=== PATIENT | female | born 1935 | race Caucasian/White ===

== ENCOUNTER 2016-11-23 10:34 | Day surgery (SDC) | payer BC, OTHER ==
[2016-11-23 11:39] VITALS: BMI 33.4
[2016-11-23 12:57] VITALS: TEMP 97.5
[2016-11-23 15:07] VITALS: BP 116/64; PULSE 65
--- NOTE | 2016-11-24 12:44 | PATH ---
Surgical Pathology Report Patient Name: MARCELO SALAZAR [facility]. Rec. #: [id number] /Age/Gender: 1935 (Age: 81) / F Account: [id number] Location: [facility] Taken: 11/23/2016 Received: 11/23/2016 Reported: 11/24/2016 Physicians: Dayo Centeno M.D. Specimen(s) Received A: BX DUODENUM B: BX STOMACH C: BX GE JUNCTION Clinical History Abdominal pain Duodenitis, erosive gastritis Final Diagnosis A. DUODENUM, BIOPSY: DUODENAL MUCOSA WITH ACTIVE AND CHRONIC INFLAMMATION AND LAZARO'S GLANDS HYPERPLASIA. NO HISTOLOGIC EVIDENCE OF GLUTEN SENSITIVE ENTEROPATHY (CELIAC DISEASE). B. STOMACH, BIOPSY: GASTRIC ANTRAL MUCOSA WITH MODERATE CHRONIC GASTRITIS AND MILD REACTIVE GASTROPATHY. IMMUNOSTAIN FOR PYLORI IS NEGATIVE FOR ORGANISMS. C. GE JUNCTION, BIOPSY: SQUAMOCOLUMNAR JUNCTIONAL MUCOSA WITH CHRONIC INFLAMMATION AND REFLUX TYPE CHANGES. NO INTESTINAL METAPLASIA (MONTILLA'S ESOPHAGUS) IDENTIFIED. Electronically Signed Nicanor Christian M.D. Gross Description A. Received in formalin, labeled "biopsy duodenum" are 2 camarena, irregular portions of soft tissue measuring 0.3 and 0.5 cm in greatest dimension. The specimens are submitted in toto in one cassette. B. Received in formalin, labeled "biopsy stomach" are 2 camarena, irregular portions of soft tissue measuring 0.2 and 0.5 cm in greatest dimension. The specimens are submitted in toto in one cassette. C. Received in formalin, labeled "biopsy GE junction" is a camarena, irregular portion of soft tissue measuring 0.2 cm in greatest dimension. The specimen is submitted in toto in one cassette. 11/23/201611/23/2016
== END 2016-11-23 14:30 | disposition home or self-care (01) ==
LOC: JASU-ENDO 10:34 → JOR 10:34 → JASU-ENDO 14:30
PROVIDERS: ATTEND Internal Medicine Gastroenterology
PROC: 0DB68ZX Excision of Stomach, Via Natural or Artificial Opening Endoscopic, Diagnostic (ICD-10-PCS; 2016-11-23)
PROC: 0DB38ZX Excision of Lower Esophagus, Via Natural or Artificial Opening Endoscopic, Diagnostic (ICD-10-PCS; principal; 2016-11-23 12:00)
DX: K21.9 Gastro-esophageal reflux disease without esophagitis (principal); K29.00 Acute gastritis without bleeding; K29.80 Duodenitis without bleeding
CPT/HCPCS: 88305-TC; 88342-TC

== ENCOUNTER 2018-08-10 12:23 | Inpatient (IN) | payer OTHER ==
[2018-08-10 12:53] VITALS: BMI 34.0
[2018-08-10] MEDS ORDERED: SODIUM CHLORIDE 0.9% 1000 ML INFUS.BAG IV ONE ×2 (13:03→14:58)
--- NOTE | 2018-08-10 13:23 | PDOC ---
Attending Attestation - Resident Resident Name: Max Hebert - ED Attending Attestation I have performed the following: I have examined & evaluated the patient, The case was reviewed & discussed with the resident, I agree w/resident's findings & plan, Exceptions are as noted - HPI HPI: 08/10/18 14:04 The patient is an 82 year old female, with a significant PMH of chronic back pain, 2 bulging discs, arthritis, IDDM, SVT, HTN, CAD, HLD who presents to the emergency department for evaluation of acutely worsening low back pain and bilateral lower extremity pain and weakness, onset this morning. Patient states that every time she tried to stand out of bed that she couldnt get up, prompting her to come to the ED. As per patient's daughter, at baseline patient is ambulatory, but upon checking in on her this morning, daughter found the patient sliding off the bed stating that her thighs hurt and are both weak. The patient denies chest pain, shortness of breath, headache and dizziness. Denies fever, chills, abd pain, nausea, vomit, diarrhea and constipation. Denies dysuria, frequency, urgency and hematuria. Allergies: NKA Social history: None reported. PCP: Dr. Sheikh - Physicial Exam PE: 08/10/18 14:05 GENERAL: Awake, alert, and fully oriented, appears ill and uncomfortable EYES: PERRLA, EOMI, sclera anicteric, conjunctiva clear ENT: +mild hearing impairment, dry MM NECK: Normal ROM, supple, no lymphadenopathy, JVD, or masses LUNGS: Breath sounds equal, clear to auscultation bilaterally. No wheezes, and no crackles HEART: irregularly irregular, rate 108, normal S1 and S2, no murmurs, rubs or gallops ABDOMEN: Soft, nontender, normoactive bowel sounds. No guarding, no rebound. No masses RECTAL: normal rectal tone, rectal temp 102.8 EXTREMITIES: Normal range of motion, no edema. No cords, erythema, or tenderness NEUROLOGICAL: Normal speech, cranial nerves intact, 4/5 symmetric strength LE proximally and distally, 5/5 strength throughout UE. Normal sensation in all extremities. Normal reflexes. SKIN: Warm, Dry, normal turgor, no rashes or lesions noted. - Medical Decision Making 08/10/18 13:37 82yo F hx CAD, HTN, IDDM, chronic back pain presents to the ED with back pain, b /l LE pain, generalized weakness, inability to walk and fever to 102.8. Pt going in and out of a narrow complex tachycardia, rate btwn 80s-120s. EKG consistent with Afib. Concern for aortic dissection vs epidural abscess vs sepsis from other source such as UTI or PNA. Plan for stat CTA chest, abd, pelvis to r/o dissection. Pt has been covered empirically with Vanc/Zosyn and given 1L NS (BP now 98/70). 08/10/18 15:20 Infectious w/u thus far including CXR, UA, flu swab negative Initial lactic 3, pt receiving fluids In light of back/leg pain, weakness, fever, concern for epidural abscess Pt c/o lumbar pain, as such T/L spine MRI will be ordered for further evaluation Pt has been evaluated by Dr. Linda in the ED for admission, will be admitted to telemetry Case discussed in detail with admitting physician including history, physical exam and ancillary studies. Admitting physician has assumed care for the patient, will follow all pending diagnostics and will complete the evaluation and treatment. <Анна Amezquita - Last Filed: 08/11/18 11:27> Heart Score/ECG Review #1 08/10/18 19:46 Twelve-lead EKG was performed and reviewed by me. Atrial fibrillation with rapid ventricular response. Left axis deviation. Right bundle branch block. <Анна Amezquita - Last Filed: 08/11/18 11:27> Attestations - Attestations 08/10/18 13:50 Documentation prepared by Marie Douglas, acting as medical scientist for Анна Amezquita MD. <Marie Douglas - Last Filed: 08/10/18 13:50>
[2018-08-10] MEDS ORDERED: SODIUM CHLORIDE 1,000 ML IV STA (13:40)
[2018-08-10] MEDS ORDERED: VANCOMYCIN 1,000 MG in DEXTROSE 5%-WATER - 250 ML IVPB ONE (13:40)
[2018-08-10] MEDS ORDERED: PIPERACILLIN/TAZOB 4.5 GM 4.5 GM in DEXTROSE 5%-WATER 100 ML IVPB ONE (13:41)
[2018-08-10 13:42] LABS: BASO % 0.5 % (0-2.0); EOS % 0.2 % (0-4.5); HEMATOCRIT 39.6 % (32.4-45.2); HEMOGLOBIN 13.5 GM/dL (10.7-15.3); LYMPH % 3.8 % (8-40); MCH 30.9 pg (25.7-33.7); MCHC 34.2 g/dl (32.0-36.0); MEAN CELL VOLUME 90.3 fl (80-96); MEAN PLT VOLUME 9.1 fl (7.5-11.1); MONO % 8.9 % (3.8-10.2); NEUT % 86.6 % (42.8-82.8); PLATELET COUNT 150 K/MM3 (134-434); RBC 4.38 M/mm3 (3.60-5.2); WHITE BLOOD COUNT 11.1 K/mm3 (4.0-10.0)
[2018-08-10 13:53] LABS: INR 1.39 (0.83-1.09); PROTHROMBIN TIME (PATIENT) 16.5 SEC (9.7-13.0)
[2018-08-10] MEDS ORDERED: ACETAMINOPHEN 1000 MG/100 ML VIAL (NON FORMULARY) IVPB ONE (14:05)
[2018-08-10] MEDS ORDERED: ACETAMINOPHEN INJECTION 100 ML IVPB ONE (14:07)
[2018-08-10] MEDS ORDERED: VANCOMYCIN 1 GRAM (PRE-DOCKED) 1,000 MG/250 ML BAG IVPB ONE (14:07)
[2018-08-10] MEDS ORDERED: PIPERACILLIN/TAZOB 4.5 GM 4.5 GM/100 ML BAG IVPB ONE (14:07)
[2018-08-10 14:18] LABS: ALBUMIN 3.4 g/dl (3.4-5.0); ALK PHOS 82 U/L (45-117); ANION GAP 10 MMOL/L (8-16); BILIRUBIN,TOTAL 0.4 mg/dL (0.2-1); BLOOD UREA NITROGEN 21 mg/dL (7-18); CALCIUM 8.5 mg/dL (8.5-10.1); CHLORIDE 104 mmol/L (98-107); CO2 22 mmol/L (21-32); CREATININE 1.3 mg/dL (0.55-1.3); GLUCOSE,RANDOM 234 mg/dL (74-106); POTASSIUM 4.9 mmol/L (3.5-5.1); SGOT/AST 102 U/L (15-37); SGPT/ALT 44 U/L (13-61); SODIUM 135 mmol/L (136-145); TOT PROT 7.4 g/dl (6.4-8.2)
--- NOTE | 2018-08-10 14:36 | PDOC ---
History of Present Illness - General Chief Complaint: Back Pain Stated Complaint: BACK PAIN Time Seen by Provider: 08/10/18 12:46 History Source: Patient Exam Limitations: No Limitations - History of Present Illness Initial Comments: 08/10/18 14:33 The patient is an 82F with a PMH of HTN, HLD, DM, and carotid stenosis who presents to the ER with her daughter for complaints of leg weakness and low back pain. The patient is with her daughter who provides the history. The daughter states that the patient woke up this morning complaining of b/l lower extremity pain. She cannot describe this pain further. Around lunchtime, the daughter noticed that the patient was half-off her bed, which is unusual for the patient. When she tried to get her legs back up, she stated that she was unable to move her legs or ambulate. She denies fever, chills, nausea, vomiting , CP, SOB, dysuria, hematuria. Past History - Past Medical History Allergies/Adverse Reactions: Allergies Allergy/AdvReac Type Severity Reaction Status Date / Time No Known Allergies Allergy Verified 08/19/15 15:38 Home Medications: Ambulatory Orders Clopidogrel Bisulfate [Plavix -] 75 mg PO DAILY 02/21/14 Glimepiride [Amaryl -] 2 mg PO BID 02/21/14 Metoprolol Succinate [Toprol XL -] 25 mg PO DAILY 02/21/14 Olmesartan/Hydrochlorothiazide [Benicar Hct 20-12.5 mg Tablet] 1 each PO DAILY 02/21/14 Rosuvastatin Calcium [Crestor] 10 mg PO DAILY 02/21/14 Cholecalciferol (Vitamin D3) [Vitamin D3] 50,000 unit PO DAILY 11/23/16 Cyclobenzaprine HCl [Flexeril 10 mg] 10 mg PO DAILY 11/23/16 Repaglinide [Prandin -] 1 mg PO TID 11/23/16 Wheat Dextrin [Benefiber] 1 each PO DAILY 11/23/16 Anemia: No Asthma: No Cancer: No Cardiac Disorders: No CVA: No COPD: No CHF: No Dementia: No Diabetes: Yes GI Disorders: No Disorders: No HTN: Yes Hypercholesterolemia: Yes Liver Disease: No Seizures: No Thyroid Disease: No - Surgical History Abdominal Surgery: No Cardiac Surgery: No Cholecystectomy: Yes Lung Surgery: No Neurologic Surgery: No - Suicide/Smoking/Psychosocial Hx Smoking Status: No Smoking History: Never smoked Have you smoked in the past 12 months: No Number of Cigarettes Smoked Daily: 0 Information on smoking cessation initiated: No Hx Alcohol Use: No Drug/Substance Use Hx: No Substance Use Type: None Hx Substance Use Treatment: No Review of Systems - Review of Systems Able to Perform ROS?: Yes Is the patient limited Armenian proficient: No *Physical Exam - Vital Signs Last Vital Signs Temp Pulse Resp BP Pulse Ox 102.8 F H 75 16 134/94 88 L 08/10/18 13:21 08/10/18 12:30 08/10/18 12:30 08/10/18 12:30 08/10/18 12:30 Moderate Sedation - Procedure Monitoring Vital Signs: Procedure Monitoring Vital Signs Temperature 102.8 F H 08/10/18 13:21 Pulse Rate 75 08/10/18 12:30 Respiratory Rate 16 08/10/18 12:30 Blood Pressure 134/94 08/10/18 12:30 O2 Sat by Pulse Oximetry (%) 88 L 08/10/18 12:30 ED Treatment Course - LABORATORY CBC & Chemistry Diagram: 08/10/18 13:20 08/10/18 13:20 - ADDITIONAL ORDERS Additional order review: Laboratory Results 08/10/18 08/10/18 08/10/18 13:25 13:20 13:20 PT with INR 16.50 H INR 1.39 H Sodium 135 L Potassium 4.9 Chloride 104 Carbon Dioxide 22 Anion Gap 10 BUN 21 H Creatinine 1.3 Creat Clearance w eGFR 39.12 POC Glucometer 217 Random Glucose 234 H Calcium 8.5 Total Bilirubin 0.4 AST 102 H ALT 44 Alkaline Phosphatase 82 Creatine Kinase 98 Troponin I 0.05 Total Protein 7.4 Albumin 3.4 08/10/18 08/10/18 13:25 13:20 RBC 4.38 MCV 90.3 MCHC 34.2 RDW 14.0 MPV 9.1 Neutrophils % 86.6 H D Lymphocytes % 3.8 L D Monocytes % 8.9 Eosinophils % 0.2 D Basophils % 0.5 POC Glucometer 217 - RADIOLOGY Radiology Studies Ordered: Category Date Time Status ABDOMEN/PELVIS CTA W/WO CONTR [CT] Stat CT Scan 08/10/18 13:01 Taken CHEST X-RAY PORTABLE* [RAD] Stat Radiology 02/22/19 13:02 Taken - Medications Given in the ED: ED Medications Discontinued Medications Generic Name Dose Route Start Last Admin Trade Name Florentino PRN Reason Stop Dose Admin Acetaminophen 1,000 mg 08/10/18 14:05 08/10/18 14:19 Ofirmev Injection - IVPB 08/10/18 14:06 1,000 mg ONCE ONE Administration Sodium Chloride 1,000 ml 08/10/18 13:03 08/10/18 14:12 Normal Saline - IV 08/10/18 13:04 1,000 ml ONCE ONE Administration *DC/Admit/Observation/Transfer - Referrals Referrals: Luda Sheikh MD [Primary Care Provider] - - Patient Instructions - Post Discharge Activity
[2018-08-10 17:26] LABS: URINE APPEARANCE CLEAR; URINE BILIRUBIN NEGATIVE (<2.0 mg/dL); URINE COLOR LTYELLOW; URINE GLUCOSE (UA) 3+ (NEGATIVE); URINE KETONE NEGATIVE (NEGATIVE); URINE LEUK ESTERASE NEGATIVE (NEGATIVE); URINE NITRITE NEGATIVE (NEGATIVE); URINE PROTEIN NEGATIVE (NEGATIVE); URINE UROBILINOGEN NEGATIVE mg/dL (0.2-1.0)
--- NOTE | 2018-08-10 17:31 | HP ---
Admitting History and Physical - Primary Care Physician PCP: Luda Sheikh - Admission Chief Complaint: My back hurt History of Present Illness: Ms Sierra is a very pleasant 82 year old female who comes in with back pain and weakness. She says that she has a history of bulging discs and arthritis in her back and that she often has pain in her back after walking, however she says it was worse this morning. She says that she got up and had severe lower back pain. It felt like a band across her lower back. She did not have trauma to her back. She needed help to get to the bathroom, and when she attempted to get up she was unable to. She needed help from her daughter to get back into bed. She says the pain and weakness worsened and she began to slide off the bed, she did not fall. She called her daughter who helped her and brought her into the hospital. She says the back pain was aching in nature and did not radiate, but she did have some slight pain and weakness in both her thighs. The pain has currently resolved. She says she is feeling much better. She denies fevers (did have a fever here), chills, lightheadedness, dizziness, passing out, chest pain , shortness of breath, coughing, abdominal pain, nausea, vomiting, diarrhea, difficulty or pain on urination, or swelling. She has chronic constipation. History Source: Patient Limitations to Obtaining History: No Limitations - Past Medical History Cardiovascular: Yes: CAD, HTN, Hyperlipdemia Endocrine: Yes: Diabetes Mellitus - Past Surgical History Past Surgical History: Yes: Cholecystectomy - Smoking History Smoking history: Never smoked Have you smoked in the past 12 months: No Aproximately how many cigarettes per day: 0 - Alcohol/Substance Use Hx Alcohol Use: No History of Substance Use: reports: None - Social History Usual Living Arrangement: Yes: With Child ADL: Family Assistance History of Recent Travel: No Home Medications - Allergies Allergies/Adverse Reactions: Allergies Allergy/AdvReac Type Severity Reaction Status Date / Time No Known Allergies Allergy Verified 08/19/15 15:38 - Home Medications Home Medications: Ambulatory Orders Clopidogrel Bisulfate [Plavix -] 75 mg PO DAILY 02/21/14 Metoprolol Succinate [Toprol XL -] 25 mg PO DAILY 02/21/14 Olmesartan/Hydrochlorothiazide [Benicar Hct 20-12.5 mg Tablet] 1 each PO DAILY 02/21/14 Rosuvastatin Calcium [Crestor] 10 mg PO DAILY 02/21/14 Repaglinide [Prandin -] 1 mg PO TID 11/23/16 Family Disease History - Family Disease History Family Disease History: Other: Daughter (constipation) Review of Systems Findings/Remarks: Full review of systems obtained, as per HPI and otherwise negative. Physical Examination Vital Signs: Vital Signs Temperature 39.3 C H 08/10/18 13:21 Pulse Rate 75 08/10/18 12:30 Respiratory Rate 16 08/10/18 12:30 Blood Pressure 134/94 08/10/18 12:30 O2 Sat by Pulse Oximetry (%) 88 L 08/10/18 12:30 Constitutional: Yes: No Distress, Calm, Obese Eyes: Yes: Conjunctiva Clear, EOM Intact, PERRL HENT: Yes: Atraumatic, Normocephalic Cardiovascular: Yes: Regular Rate and Rhythm. No: Gallop, Murmur, Rub Respiratory: Yes: Regular, CTA Bilaterally. No: Rales, Rhonchi, Wheezes Gastrointestinal: Yes: Normal Bowel Sounds, Soft. No: Distention, Tenderness Extremities: Yes: WNL Edema: No Labs: CBC, BMP 08/10/18 13:20 08/10/18 13:20 Imaging - Results Chest X-ray: Image Reviewed Cat Scan: Report Reviewed Problem List - Problems (1) Sepsis Assessment/Plan: -SIRS vs sepsis -admit to telemetry -urinalysis and urine culture pending -given vancomycin and zosyn in the ED -no recent hospitalizations -will change to rocephin -will consult ID as well -hydration with NS -follow up cultures Code(s): A41.9 - SEPSIS, UNSPECIFIED ORGANISM (2) Back pain Assessment/Plan: -acute on chronic but currently resolved -no neurologic signs -PT consult -monitor Code(s): M54.9 - DORSALGIA, UNSPECIFIED Qualifiers: Back pain location: low back pain Chronicity: chronic Back pain laterality: bilateral Sciatica presence: without sciatica Qualified Code(s) : M54.5 - Low back pain; G89.29 - Other chronic pain (3) Lactic acid acidosis Assessment/Plan: -hydration -antibiotics as above -recheck Code(s): E87.2 - ACIDOSIS (4) Diabetes Assessment/Plan: -diabetic diet -FSBS and SSI Code(s): E11.9 - TYPE 2 DIABETES MELLITUS WITHOUT COMPLICATIONS Qualifiers: Diabetes mellitus type: type 2 Diabetes mellitus bellman insulin use: without prison use Diabetes mellitus complication status: without complication Qualified Code(s): E11.9 - Type 2 diabetes mellitus without complications (5) Hypertension Assessment/Plan: -continue toprol xl with hold parameters Code(s): I10 - ESSENTIAL (PRIMARY) HYPERTENSION (6) HLD (hyperlipidemia) Assessment/Plan: -continue statin Code(s): E78.5 - HYPERLIPIDEMIA, UNSPECIFIED (7) CAD (coronary artery disease) Assessment/Plan: -quiescent -continue home regimen Code(s): I25.10 - ATHSCL HEART DISEASE OF [place] CORONARY ARTERY W/O ANG PCTRS (8) Atrial fibrillation Assessment/Plan: -questionable -sees Dr Ward in the outpatient -will consult Code(s): I48.91 - UNSPECIFIED ATRIAL FIBRILLATION
[2018-08-10] MEDS: SODIUM CHLORIDE 1,000 ML IV SCH (21:21)
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
[2018-08-10] MEDS ORDERED: SILVER SULFADIAZINE 1% TOP CREAM 50 GM JAR TP ONE (22:36)
[2018-08-10] MEDS: INSULIN (NOVOLOG) ASPART 100 UNITS/ML 10ML VIAL SQ SCH (23:10)
[2018-08-11] MEDS ORDERED: CEPHALEXIN MONOHYDRATE 500 MG CAPSULE (UD) PO ONE
[2018-08-11] MEDS: ACETAMINOPHEN 325 MG TABLET (FP) PO PRN (00:31)
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
[2018-08-11] MEDS: INSULIN (NOVOLOG) ASPART 100 UNITS/ML 10ML VIAL SQ SCH ×4 (06:21→22:57)
[2018-08-11 08:07] LABS: BASO % 0.5 % (0-2.0); EOS % 1.4 % (0-4.5); HEMATOCRIT 32.9 % (32.4-45.2); HEMOGLOBIN 11.3 GM/dL (10.7-15.3); LYMPH % 16.6 % (8-40); MCH 30.9 pg (25.7-33.7); MCHC 34.3 g/dl (32.0-36.0); MEAN CELL VOLUME 90.1 fl (80-96); MEAN PLT VOLUME 8.7 fl (7.5-11.1); MONO % 16.1 % (3.8-10.2); NEUT % 65.4 % (42.8-82.8); PLATELET COUNT 120 K/MM3 (134-434); RBC 3.65 M/mm3 (3.60-5.2); RDW 14.1 % (11.6-15.6); WHITE BLOOD COUNT 4.6 K/mm3 (4.0-10.0)
[2018-08-11 08:33] LABS: ALBUMIN 2.8 g/dl (3.4-5.0); ALK PHOS 62 U/L (45-117); ANION GAP 6 MMOL/L (8-16); BILIRUBIN,TOTAL 0.4 mg/dL (0.2-1); BLOOD UREA NITROGEN 18 mg/dL (7-18); CALCIUM 7.8 mg/dL (8.5-10.1); CHLORIDE 108 mmol/L (98-107); CO2 26 mmol/L (21-32); GLUCOSE,RANDOM 88 mg/dL (74-106); MAGNESIUM 1.7 mg/dL (1.8-2.4); PHOSPHOROUS 3.2 mg/dL (2.5-4.9); POTASSIUM 3.7 mmol/L (3.5-5.1); SGOT/AST 84 U/L (15-37); SGPT/ALT 36 U/L (13-61); SODIUM 140 mmol/L (136-145); TOT PROT 6.1 g/dl (6.4-8.2)
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
[2018-08-11] MEDS ORDERED: cefTRIAXone SODIUM 1 GM VIAL ONE (09:54)
[2018-08-11] MEDS ORDERED: DEXTROSE 5%-WATER - 50 ML IVPB ONE (09:54)
[2018-08-11] MEDS ORDERED: metoPROLOL SUCCINATE 25 MG TAB.SR.24H (FP) PO SCH (10:00)
[2018-08-11] MEDS ORDERED: CLOPIDOGREL BISULFATE 75 MG TABLET (FP) PO SCH (10:00)
[2018-08-11] MEDS: LACTOBACILLUS ACIDOPHILUS 1 TABLET PO SCH (10:16)
[2018-08-11] MEDS: CEFTRIAXONE 1 GM in DEXTROSE 5%-WATER - 50 ML IVPB SCH (10:16)
[2018-08-11] MEDS: metoPROLOL SUCCINATE 25 MG TAB.SR.24H (FP) PO SCH (10:16)
[2018-08-11] MEDS: ENOXAPARIN NA (PORCINE) 40 MG/0.4 ML DISP.SYRIN SQ SCH (10:18)
--- NOTE | 2018-08-11 11:01 | CON.CARD ---
Consult Consult Specialty:: Cardiology Referred by:: Dr. Pimentel Reason for Consultation:: Cardiac evaluation - History of Present Illness Chief Complaint: Back pain and generalized weakness History of Present Illness: Patient is an 82 year old female well known to our service with underlying history of CAD (non-obstructive), angina pectoris, HTN/HCVD, DM, hypercholesterolemia and degenerative vertebral disc disease who presents with worsening back pain and weakness resulting in unable to get up. She claims that she feels better. She denies chest pain, SOB or palpitation. She denies paroxysmal nocturnal dyspnea or orthopnea. She denies fever or chills. She denies nausea, vomiting, diarrhea or abdominal pain. She denies headache or lightheadedness. - History Source History Provided By: Patient, Medical Record Limitations to Obtaining History: No Limitations - Past Medical History Cardio/Vascular: Yes: CAD, HTN, Hyperlipdemia Endocrine: Yes: Diabetes Mellitus - Past Surgical History Past Surgical History: Yes: Cholecystectomy - Alcohol/Substance Use Hx Alcohol Use: No History of Substance Use: reports: None - Smoking History Smoking history: Never smoked Have you smoked in the past 12 months: No Aproximately how many cigarettes per day: 0 - Social History ADL: Family Assistance History of Recent Travel: No Home Medications - Allergies Allergies/Adverse Reactions: Allergies Allergy/AdvReac Type Severity Reaction Status Date / Time No Known Allergies Allergy Verified 08/19/15 15:38 - Home Medications Home Medications: Ambulatory Orders Clopidogrel Bisulfate [Plavix -] 75 mg PO DAILY 02/21/14 Metoprolol Succinate [Toprol XL -] 25 mg PO DAILY 02/21/14 Olmesartan/Hydrochlorothiazide [Benicar Hct 20-12.5 mg Tablet] 1 each PO DAILY 02/21/14 Rosuvastatin Calcium [Crestor] 10 mg PO DAILY 02/21/14 Repaglinide [Prandin -] 1 mg PO TID 11/23/16 Family Disease History - Family Disease History Family Disease History: Other: Daughter (constipation) Review of Systems - Review of Systems Constitutional: reports: Weakness. denies: Chills, Fever Cardiovascular: denies: Chest Pain, Palpitations, Shortness of Breath Respiratory: denies: Cough, Hemoptysis, Orthopnea, PND, SOB, SOB on Exertion Gastrointestinal: denies: Constipation, Diarrhea, Melena, Nausea, Rectal Bleeding, Vomiting Musculoskeletal: reports: Back Pain Neurological: denies: Dizziness, Headache, Seizure, Syncope Vital Signs: Vital Signs Temperature 97.8 F 08/11/18 06:16 Pulse Rate 54 L 08/11/18 06:16 Respiratory Rate 18 08/11/18 06:16 Blood Pressure 110/57 L 08/11/18 06:16 O2 Sat by Pulse Oximetry (%) 97 08/10/18 23:00 Eyes: Yes: PERRL HENT: Yes: Atraumatic Neck: Yes: Supple Respiratory: Yes: CTA Bilaterally Gastrointestinal: Yes: Normal Bowel Sounds, Soft. No: Tenderness Cardiovascular: Yes: Regular Rate and Rhythm JVD: No PMI: Non-Displaced Heart Sounds: Yes: S1, S2. No: Gallop Murmur: No: Systolic Murmur, Diastolic Murmur Edema: No - Other Data Labs, Other Data: CBC, BMP 08/11/18 06:30 08/11/18 06:30 INR, PTT INR 1.39 (0.83-1.09) H 08/10/18 13:20 Troponin, BNP 08/10/18 13:20 Troponin I 0.05 Laboratory Results - last 24 hr 08/10/18 08/10/18 08/11/18 18:08 23:01 06:04 WBC RBC Hgb Hct MCV MCH MCHC RDW Plt Count MPV Absolute Neuts (auto) Neutrophils % Lymphocytes % Monocytes % Eosinophils % Basophils % Nucleated RBC % Sodium Potassium Chloride Carbon Dioxide Anion Gap BUN Creatinine Creat Clearance w eGFR POC Glucometer 172 84 Random Glucose Lactic Acid 1.2 Calcium Phosphorus Magnesium Total Bilirubin AST ALT Alkaline Phosphatase Total Protein Albumin 08/11/18 08/11/18 08/11/18 06:30 06:30 11:08 WBC 4.6 RBC 3.65 Hgb 11.3 Hct 32.9 D MCV 90.1 MCH 30.9 MCHC 34.3 RDW 14.1 Plt Count 120 L MPV 8.7 Absolute Neuts (auto) 3.0 Neutrophils % 65.4 D Lymphocytes % 16.6 D Monocytes % 16.1 H D Eosinophils % 1.4 D Basophils % 0.5 Nucleated RBC % 0 Sodium 140 Potassium 3.7 Chloride 108 H Carbon Dioxide 26 Anion Gap 6 L BUN 18 Creatinine 1.0 Creat Clearance w eGFR 52.95 POC Glucometer 180 Random Glucose 88 Lactic Acid Calcium 7.8 L Phosphorus 3.2 Magnesium 1.7 L Total Bilirubin 0.4 AST 84 H ALT 36 Alkaline Phosphatase 62 Total Protein 6.1 L Albumin 2.8 L AF with RVR and RBBB Imaging - Results Chest X-ray: Report Reviewed (Large heart, minimal atelectasis) Cat Scan: Report Reviewed (Chest, abdomen and pelvis CT) EKG: Report Reviewed Problem List - Problems (1) Atrial fibrillation Code(s): I48.91 - UNSPECIFIED ATRIAL FIBRILLATION (2) CAD (coronary artery disease) Code(s): I25.10 - ATHSCL HEART DISEASE OF [place] CORONARY ARTERY W/O ANG PCTRS (3) HLD (hyperlipidemia) Code(s): E78.5 - HYPERLIPIDEMIA, UNSPECIFIED (4) CVA (cerebral vascular accident) Code(s): I63.9 - CEREBRAL INFARCTION, UNSPECIFIED (5) Diabetes Code(s): E11.9 - TYPE 2 DIABETES MELLITUS WITHOUT COMPLICATIONS Qualifiers: Diabetes mellitus type: type 2 Diabetes mellitus solar panel technician insulin use: without retirement use Diabetes mellitus complication status: without complication Qualified Code(s): E11.9 - Type 2 diabetes mellitus without complications (6) Hypertension Code(s): I10 - ESSENTIAL (PRIMARY) HYPERTENSION Assessment/Plan 1. Generalized weakness with back pain 2. Gait instability 3. Atrial fibrillation with RVR 4. CAD, nonobstructive, angina pectoris 5. HTN/HCVD 6. DM 7. Hypercholesterolemia PLAN: 1. Patient was last seen in the office on 03/07/18 at which time ECG revealed sinus rhythm. In view of AF, would start anticoagulation. Consider Eliquis 5 mg BID unless contraindicated. Stop Plavix once Eliquis is initiated. Eventually D/ C Lovenox 2. ECG to be repeated 3. Continue Toprol XL (uptitrate as needed) 4. Continue Crestor 5. Continue Olmesartan or equivalent as it is nonformulary in the hospital ( check BP first before initiating) 6. Echocardiography to assess LV/RV and valvular function Further plans are to follow Benjamin Ward MD
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
[2018-08-11] MEDS: MORPHINE SULFATE 2 MG/ML VIAL IVPUSH PRN (14:04)
[2018-08-11] MEDS: COLLAGENASE CLOSTRIDIUM HIST. 30 GRAMS TUBE TP SCH (14:33)
[2018-08-11] MEDS: SODIUM CHLORIDE 1,000 ML IV SCH (17:41)
--- NOTE | 2018-08-11 21:36 | EKG ---
Test Reason : Blood Pressure : / mmHG Vent. Rate : 124 BPM Atrial Rate : 127 BPM P-R Int : 000 ms QRS Dur : 118 ms QT Int : 362 ms P-R-T Axes : 000 -40 012 degrees QTc Int : 520 ms ATRIAL FIBRILLATION WITH RAPID VENTRICULAR RESPONSE LEFT AXIS DEVIATION LOW VOLTAGE QRS RIGHT BUNDLE BRANCH BLOCK ABNORMAL ECG WHEN COMPARED WITH ECG OF 21-FEB-2014 19:25, ATRIAL FIBRILLATION HAS REPLACED SINUS RHYTHM VENT. RATE HAS INCREASED BY 48 BPM RIGHT BUNDLE BRANCH BLOCK IS NOW PRESENT Confirmed by KALEB SLATER MD ([id number]) on 08/11/2018 9:36:04 PM Referred By: Confirmed By:KALEB SLATER MD
[2018-08-11] MEDS ORDERED: APIXABAN 5 MG TABLET PO ONE (22:00)
[2018-08-11] MEDS: ROSUVASTATIN CA 10 MG TABLET (FP) PO SCH (22:56)
[2018-08-12] MEDS: MORPHINE SULFATE 2 MG/ML VIAL IVPUSH PRN ×3 (04:12→22:49)
[2018-08-12] MEDS: INSULIN (NOVOLOG) ASPART 100 UNITS/ML 10ML VIAL SQ SCH ×4 (07:28→21:05)
[2018-08-12 07:52] LABS: BASO % 0.4 % (0-2.0); HEMATOCRIT 33.3 % (32.4-45.2); HEMOGLOBIN 11.4 GM/dL (10.7-15.3); LYMPH % 16.2 % (8-40); MCH 30.5 pg (25.7-33.7); MCHC 34.1 g/dl (32.0-36.0); MEAN CELL VOLUME 89.4 fl (80-96); MEAN PLT VOLUME 8.8 fl (7.5-11.1); MONO % 8.9 % (3.8-10.2); NEUT % 73.5 % (42.8-82.8); PLATELET COUNT 119 K/MM3 (134-434); RBC 3.73 M/mm3 (3.60-5.2); RDW 13.9 % (11.6-15.6); WHITE BLOOD COUNT 5.9 K/mm3 (4.0-10.0)
[2018-08-12 08:15] LABS: ANION GAP 5 MMOL/L (8-16); BLOOD UREA NITROGEN 16 mg/dL (7-18); CHLORIDE 107 mmol/L (98-107); CO2 26 mmol/L (21-32); CREATININE 0.9 mg/dL (0.55-1.3); GLUCOSE,RANDOM 154 mg/dL (74-106); MAGNESIUM 1.7 mg/dL (1.8-2.4); POTASSIUM 4.2 mmol/L (3.5-5.1); SODIUM 138 mmol/L (136-145)
[2018-08-12] MEDS ORDERED: DEXTROSE 5%-WATER - 50 ML IVPB ONE (08:45)
[2018-08-12] MEDS ORDERED: cefTRIAXone SODIUM 1 GM VIAL ONE (08:45)
[2018-08-12] MEDS: metoPROLOL SUCCINATE 25 MG TAB.SR.24H (FP) PO SCH (09:00)
[2018-08-12] MEDS: CEFTRIAXONE 1 GM in DEXTROSE 5%-WATER - 50 ML IVPB SCH (09:00)
[2018-08-12] MEDS: LACTOBACILLUS ACIDOPHILUS 1 TABLET PO SCH (09:00)
[2018-08-12] MEDS: COLLAGENASE CLOSTRIDIUM HIST. 30 GRAMS TUBE TP SCH (09:00)
[2018-08-12] MEDS: ENOXAPARIN NA (PORCINE) 40 MG/0.4 ML DISP.SYRIN SQ SCH (09:00)
--- NOTE | 2018-08-12 09:50 | PN ---
Progress Note, Physician Chief Complaint: Generalized weakness History of Present Illness: Patient was seen and examined. Awake and alert. Chart was reviewed Denies chest pain or SOB - Current Medication List Current Medications: Active Medications Acetaminophen (Tylenol -) 650 mg PO Q4H PRN PRN Reason: FEVER Last Admin: 08/11/18 00:31 Dose: 650 mg Apixaban (Eliquis -) 5 mg PO BID [facility] Collagenase (Santyl -) 1 applic TP DAILY [facility]; Protocol Last Admin: 08/12/18 09:00 Dose: 1 applic Enoxaparin Sodium (Lovenox -) 40 mg SQ DAILY [facility] Last Admin: 08/12/18 09:00 Dose: 40 mg Sodium Chloride (Normal Saline -) 1,000 mls @ 75 mls/hr IV ASDIR [facility] Last Admin: 08/11/18 17:41 Dose: 75 mls/hr Ceftriaxone Sodium 1 gm/ (Dextrose) 50 mls @ 100 mls/hr IVPB DAILY [facility]; Protocol Last Admin: 08/12/18 09:00 Dose: 100 mls/hr Insulin Aspart (Novolog Vial) 1 units SQ ACHS [facility]; Protocol Last Admin: 08/12/18 07:28 Dose: 2 unit Lactobacillus Acidophilus (Bacid -) 1 tab PO DAILY [facility] Last Admin: 08/12/18 09:00 Dose: 1 tab Metoprolol Succinate (Toprol Xl -) 25 mg PO DAILY [facility] Last Admin: 08/12/18 09:00 Dose: 25 mg Morphine Sulfate (Morphine Sulfate) 2 mg IVPUSH Q4H PRN PRN Reason: PAIN LEVEL 6-10 Last Admin: 08/12/18 04:12 Dose: 2 mg Rosuvastatin Calcium (Crestor -) 10 mg PO HS [facility] Last Admin: 08/11/18 22:56 Dose: 10 mg - Objective Vital Signs: Vital Signs Temperature 98.5 F 08/12/18 06:00 Pulse Rate 85 08/12/18 06:00 Respiratory Rate 14 08/12/18 06:00 Blood Pressure 139/80 08/12/18 06:00 O2 Sat by Pulse Oximetry (%) 99 08/11/18 21:00 Eyes: Yes: PERRL HENT: Yes: Atraumatic Neck: Yes: Supple Cardiovascular: Yes: Regular Rate and Rhythm, S1, S2 Respiratory: Yes: CTA Bilaterally Gastrointestinal: Yes: Normal Bowel Sounds, Soft. No: Tenderness Edema: No Additional Findings/Remarks: - Review of Systems Constitutional: reports: Weakness. denies: Chills, Fever Cardiovascular: denies: Chest Pain, Palpitations, Shortness of Breath Respiratory: denies: Cough, Hemoptysis, Orthopnea, PND, SOB, SOB on Exertion Gastrointestinal: denies: Constipation, Diarrhea, Melena, Nausea, Rectal Bleeding, Vomiting Musculoskeletal: reports: Back Pain Neurological: denies: Dizziness, Headache, Seizure, Syncope Labs: CBC, BMP 08/12/18 06:00 08/12/18 06:00 INR, PTT INR 1.39 (0.83-1.09) H 08/10/18 13:20 Problem List - Problems (1) Atrial fibrillation Code(s): I48.91 - UNSPECIFIED ATRIAL FIBRILLATION Qualifiers: Atrial fibrillation type: paroxysmal Qualified Code(s): I48.0 - Paroxysmal atrial fibrillation (2) CAD (coronary artery disease) Code(s): I25.10 - ATHSCL HEART DISEASE OF [place] CORONARY ARTERY W/O ANG PCTRS Qualifiers: Coronary Disease-Associated Artery/Lesion type: [place] artery [place] vs. transplanted heart: [place] heart Associated angina: without angina Qualified Code(s): I25.10 - Atherosclerotic heart disease of [place] coronary artery without angina pectoris (3) HLD (hyperlipidemia) Code(s): E78.5 - HYPERLIPIDEMIA, UNSPECIFIED Qualifiers: Hyperlipidemia type: pure hypercholesterolemia Qualified Code(s): E78.00 - Pure hypercholesterolemia, unspecified; E78.0 - Pure hypercholesterolemia (4) CVA (cerebral vascular accident) Code(s): I63.9 - CEREBRAL INFARCTION, UNSPECIFIED Qualifiers: CVA mechanism: unspecified Qualified Code(s): I63.9 - Cerebral infarction, unspecified (5) Diabetes Code(s): E11.9 - TYPE 2 DIABETES MELLITUS WITHOUT COMPLICATIONS Qualifiers: Diabetes mellitus type: type 2 Diabetes mellitus buttermaker continuous churn insulin use: without buttermaker continuous churn use Diabetes mellitus complication status: without complication Qualified Code(s): E11.9 - Type 2 diabetes mellitus without complications (6) Hypertension Code(s): I10 - ESSENTIAL (PRIMARY) HYPERTENSION Qualifiers: Hypertension type: essential hypertension Qualified Code(s): I10 - Essential (primary) hypertension Assessment/Plan 1. Generalized weakness with back pain 2. Gait instability 3. Atrial fibrillation with RVR 4. CAD, nonobstructive, angina pectoris 5. HTN/HCVD 6. DM 7. Hypercholesterolemia 8. Sepsis PLAN: 1. Continue Eliquis 5 mg BID 2. ECG to be repeated 3. Continue Toprol XL (uptitrate as needed) 4. Continue Crestor 5. Continue Olmesartan or equivalent as it is nonformulary in the hospital - currently held as her BP is not elevated 6. Empiric antibiotics 7. Echocardiography to assess LV/RV and valvular function Further plans are to follow Benjamin Ward MD
[2018-08-12] MEDS ORDERED: INSULIN SLIDING SCALE (NOVOLOG) 1 VIAL SQ ONE ×2 (11:44→17:33)
[2018-08-12 13:30] LABS: VENOUS PH 7.45 (7.32-7.42)
[2018-08-12 13:31] LABS: VENOUS PC02 30.3 mmHg (38-52); VENOUS PO2 53.7 mmHg (28-48)
--- NOTE | 2018-08-12 14:12 | PN ---
Progress Note, Physician Chief Complaint: Ms Sierra complains of a dry throat and cough. Denies cp, sob, n/v. Still with some weakness in her legs. - Current Medication List Current Medications: Active Medications Acetaminophen (Tylenol -) 650 mg PO Q4H PRN PRN Reason: FEVER Last Admin: 08/11/18 00:31 Dose: 650 mg Apixaban (Eliquis -) 5 mg PO BID [facility] Benzocaine/Menthol (Cepacol Lozenge -) 1 each MM PRN PRN PRN Reason: SORE THROAT Collagenase (Santyl -) 1 applic TP DAILY [facility]; Protocol Last Admin: 08/12/18 09:00 Dose: 1 applic Enoxaparin Sodium (Lovenox -) 40 mg SQ DAILY [facility] Last Admin: 08/12/18 09:00 Dose: 40 mg Guaifenesin/Codeine Phosphate (Robitussin Ac -) 5 ml PO TID PRN PRN Reason: COUGH Sodium Chloride (Normal Saline -) 1,000 mls @ 75 mls/hr IV ASDIR [facility] Last Admin: 08/11/18 17:41 Dose: 75 mls/hr Ceftriaxone Sodium 1 gm/ (Dextrose) 50 mls @ 100 mls/hr IVPB DAILY [facility]; Protocol Last Admin: 08/12/18 09:00 Dose: 100 mls/hr Insulin Aspart (Novolog Vial) 1 units SQ ACHS [facility]; Protocol Last Admin: 08/12/18 11:59 Dose: 4 unit Lactobacillus Acidophilus (Bacid -) 1 tab PO DAILY [facility] Last Admin: 08/12/18 09:00 Dose: 1 tab Metoprolol Succinate (Toprol Xl -) 25 mg PO DAILY [facility] Last Admin: 08/12/18 09:00 Dose: 25 mg Morphine Sulfate (Morphine Sulfate) 2 mg IVPUSH Q4H PRN PRN Reason: PAIN LEVEL 6-10 Last Admin: 08/12/18 04:12 Dose: 2 mg Rosuvastatin Calcium (Crestor -) 10 mg PO HS [facility] Last Admin: 08/11/18 22:56 Dose: 10 mg - Objective Vital Signs: Vital Signs Temperature 36.6 C 08/12/18 10:00 Pulse Rate 69 08/12/18 10:00 Respiratory Rate 14 08/12/18 10:00 Blood Pressure 117/95 08/12/18 10:00 O2 Sat by Pulse Oximetry (%) 99 08/12/18 10:00 Constitutional: Yes: Well Nourished, No Distress, Calm Cardiovascular: Yes: Regular Rate and Rhythm. No: Gallop, Murmur, Rub Respiratory: Yes: Regular, CTA Bilaterally. No: Rales, Rhonchi, Wheezes Gastrointestinal: Yes: Normal Bowel Sounds, Soft. No: Distention, Tenderness Extremities: Yes: WNL Edema: No Labs: CBC, BMP 08/12/18 06:00 08/12/18 06:00 INR, PTT INR 1.39 (0.83-1.09) H 08/10/18 13:20 Problem List - Problems (1) Sepsis Code(s): A41.9 - SEPSIS, UNSPECIFIED ORGANISM (2) Back pain Code(s): M54.9 - DORSALGIA, UNSPECIFIED Qualifiers: Back pain location: low back pain Chronicity: chronic Back pain laterality: bilateral Sciatica presence: without sciatica Qualified Code(s) : M54.5 - Low back pain; G89.29 - Other chronic pain (3) Lactic acid acidosis Code(s): E87.2 - ACIDOSIS (4) Diabetes Code(s): E11.9 - TYPE 2 DIABETES MELLITUS WITHOUT COMPLICATIONS Qualifiers: Diabetes mellitus type: type 2 Diabetes mellitus assisted insulin use: without twisting machine operator use Diabetes mellitus complication status: without complication Qualified Code(s): E11.9 - Type 2 diabetes mellitus without complications (5) Hypertension Code(s): I10 - ESSENTIAL (PRIMARY) HYPERTENSION (6) HLD (hyperlipidemia) Code(s): E78.5 - HYPERLIPIDEMIA, UNSPECIFIED (7) CAD (coronary artery disease) Code(s): I25.10 - ATHSCL HEART DISEASE OF [place] CORONARY ARTERY W/O ANG PCTRS (8) Atrial fibrillation Code(s): I48.91 - UNSPECIFIED ATRIAL FIBRILLATION Assessment/Plan (1) Sepsis Assessment/Plan: -appreciate ID assistance -continue empiric rocephin -if cultures NGTD, discontinue tomorrow Code(s): A41.9 - SEPSIS, UNSPECIFIED ORGANISM (2) Back pain Assessment/Plan: -MRI read pending -PT consulted Code(s): M54.9 - DORSALGIA, UNSPECIFIED Qualifiers: Back pain location: low back pain Chronicity: chronic Back pain laterality: bilateral Sciatica presence: without sciatica Qualified Code(s) : M54.5 - Low back pain; G89.29 - Other chronic pain (3) Lactic acid acidosis Assessment/Plan: -resolved with hydration Code(s): E87.2 - ACIDOSIS (4) Diabetes Assessment/Plan: -diabetic diet -FSBS and SSI Code(s): E11.9 - TYPE 2 DIABETES MELLITUS WITHOUT COMPLICATIONS Qualifiers: Diabetes mellitus type: type 2 Diabetes mellitus twisting machine operator insulin use: without assisted use Diabetes mellitus complication status: without complication Qualified Code(s): E11.9 - Type 2 diabetes mellitus without complications (5) Hypertension Assessment/Plan: -continue toprol xl with hold parameters Code(s): I10 - ESSENTIAL (PRIMARY) HYPERTENSION (6) HLD (hyperlipidemia) Assessment/Plan: -continue statin Code(s): E78.5 - HYPERLIPIDEMIA, UNSPECIFIED (7) CAD (coronary artery disease) Assessment/Plan: -quiescent -continue home regimen Code(s): I25.10 - ATHSCL HEART DISEASE OF [place] CORONARY ARTERY W/O ANG PCTRS (8) Atrial fibrillation Assessment/Plan: -cardiology note reviewed -continue eliquis -rate controlled -ECHO pending Code(s): I48.91 - UNSPECIFIED ATRIAL FIBRILLATION (9) [place] -continue Santyl -wound care following
[2018-08-12] MEDS ORDERED: PT OWN MED DRAWER 7, Y5N ONE ×2 (15:03→16:27)
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
[2018-08-12] MEDS: SODIUM CHLORIDE 1,000 ML IV SCH (17:32)
[2018-08-12] MEDS: ACETAMINOPHEN 325 MG TABLET (FP) PO PRN (20:41)
[2018-08-12] MEDS: ROSUVASTATIN CA 10 MG TABLET (FP) PO SCH (21:01)
[2018-08-12] MEDS: APIXABAN 5 MG TABLET PO SCH (21:04)
--- NOTE | 2018-08-12 22:04 | EKG ---
Test Reason : Blood Pressure : / mmHG Vent. Rate : 067 BPM Atrial Rate : 067 BPM P-R Int : 182 ms QRS Dur : 086 ms QT Int : 438 ms P-R-T Axes : 052 -11 -09 degrees QTc Int : 462 ms NORMAL SINUS RHYTHM LOW VOLTAGE QRS CANNOT RULE OUT INFERIOR INFARCT , AGE UNDETERMINED ABNORMAL ECG WHEN COMPARED WITH ECG OF 10-AUG-2018 13:24, SINUS RHYTHM HAS REPLACED ATRIAL FIBRILLATION VENT. RATE HAS DECREASED BY 57 BPM RIGHT BUNDLE BRANCH BLOCK IS NO LONGER PRESENT Confirmed by KALEB SLATER MD ([id number]) on 08/12/2018 10:04:12 PM Referred By: Tommie FAIRBANKS Confirmed By:KALEB SLATER MD
[2018-08-13] MEDS: INSULIN (NOVOLOG) ASPART 100 UNITS/ML 10ML VIAL SQ SCH ×4 (06:05→23:02)
[2018-08-13 08:01] LABS: BASO % 0.4 % (0-2.0); EOS % 4.9 % (0-4.5); HEMATOCRIT 32.3 % (32.4-45.2); HEMOGLOBIN 11.3 GM/dL (10.7-15.3); LYMPH % 25.2 % (8-40); MCH 31.6 pg (25.7-33.7); MEAN CELL VOLUME 90.3 fl (80-96); MEAN PLT VOLUME 8.5 fl (7.5-11.1); MONO % 10.2 % (3.8-10.2); NEUT % 59.3 % (42.8-82.8); PLATELET COUNT 108 K/MM3 (134-434); RBC 3.58 M/mm3 (3.60-5.2); RDW 13.9 % (11.6-15.6); WHITE BLOOD COUNT 3.3 K/mm3 (4.0-10.0)
[2018-08-13 08:54] LABS: ANION GAP 6 MMOL/L (8-16); BLOOD UREA NITROGEN 13 mg/dL (7-18); CHLORIDE 108 mmol/L (98-107); CO2 26 mmol/L (21-32); CREATININE 0.8 mg/dL (0.55-1.3); GLUCOSE,RANDOM 114 mg/dL (74-106); MAGNESIUM 1.8 mg/dL (1.8-2.4); PHOSPHOROUS 2.8 mg/dL (2.5-4.9); POTASSIUM 3.9 mmol/L (3.5-5.1); SODIUM 139 mmol/L (136-145)
[2018-08-13 09:01] LABS: CALCIUM 6.9 mg/dL (8.5-10.1)
[2018-08-13] MEDS ORDERED: cefTRIAXone SODIUM 1 GM VIAL ONE (09:07)
[2018-08-13] MEDS ORDERED: DEXTROSE 5%-WATER - 50 ML IVPB ONE (09:08)
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
[2018-08-13] MEDS: CEFTRIAXONE 1 GM in DEXTROSE 5%-WATER - 50 ML IVPB SCH (09:22)
[2018-08-13] MEDS: metoPROLOL SUCCINATE 25 MG TAB.SR.24H (FP) PO SCH (09:22)
[2018-08-13] MEDS: LACTOBACILLUS ACIDOPHILUS 1 TABLET PO SCH (09:22)
[2018-08-13] MEDS: BENZOCAINE/MENTH/CETYLPYRD CL 1 EACH LOZENGE MM PRN (09:22)
[2018-08-13] MEDS: APIXABAN 5 MG TABLET PO SCH ×2 (09:22→23:01)
--- NOTE | 2018-08-13 09:58 | PN ---
Progress Note, Physician Chief Complaint: Generalized weakness improving History of Present Illness: Patient was seen and examined. Awake and alert. Chart was reviewed Denies chest pain or SOB - Current Medication List Current Medications: Active Medications Acetaminophen (Tylenol -) 650 mg PO Q4H PRN PRN Reason: FEVER Last Admin: 08/12/18 20:41 Dose: 650 mg Apixaban (Eliquis -) 5 mg PO BID [facility] Last Admin: 08/13/18 09:22 Dose: 5 mg Benzocaine/Menthol (Cepacol Lozenge -) 1 each MM PRN PRN PRN Reason: SORE THROAT Last Admin: 08/13/18 09:22 Dose: 1 each Collagenase (Santyl -) 1 applic TP DAILY [facility]; Protocol Last Admin: 08/12/18 09:00 Dose: 1 applic Guaifenesin/Codeine Phosphate (Robitussin Ac -) 5 ml PO TID PRN PRN Reason: COUGH Sodium Chloride (Normal Saline -) 1,000 mls @ 75 mls/hr IV ASDIR [facility] Last Admin: 08/12/18 17:32 Dose: Not Given Ceftriaxone Sodium 1 gm/ (Dextrose) 50 mls @ 100 mls/hr IVPB DAILY [facility]; Protocol Last Admin: 08/13/18 09:22 Dose: 100 mls/hr Insulin Aspart (Novolog Vial) 1 units SQ ACHS [facility]; Protocol Last Admin: 08/13/18 06:05 Dose: Not Given Lactobacillus Acidophilus (Bacid -) 1 tab PO DAILY [facility] Last Admin: 08/13/18 09:22 Dose: 1 tab Magnesium Oxide (Mag-Ox -) 400 mg PO ONCE ONE Stop: 08/13/18 10:01 Last Admin: 08/13/18 09:22 Dose: 400 mg Metoprolol Succinate (Toprol Xl -) 25 mg PO DAILY [facility] Last Admin: 08/13/18 09:22 Dose: 25 mg Morphine Sulfate (Morphine Sulfate) 2 mg IVPUSH Q4H PRN PRN Reason: PAIN LEVEL 6-10 Last Admin: 08/12/18 22:49 Dose: 2 mg Rosuvastatin Calcium (Crestor -) 10 mg PO HS [facility] Last Admin: 08/12/18 21:01 Dose: 10 mg - Objective Vital Signs: Vital Signs Temperature 98.0 F 08/13/18 09:21 Pulse Rate 81 08/13/18 09:21 Respiratory Rate 18 08/13/18 09:21 Blood Pressure 139/74 08/13/18 09:21 O2 Sat by Pulse Oximetry (%) 99 08/12/18 21:00 Eyes: Yes: PERRL HENT: Yes: Atraumatic Neck: Yes: Supple Cardiovascular: Yes: Regular Rate and Rhythm, S1, S2 Respiratory: Yes: CTA Bilaterally Gastrointestinal: Yes: Normal Bowel Sounds, Soft. No: Tenderness Edema: No Additional Findings/Remarks: - Review of Systems Constitutional: reports: Weakness. denies: Chills, Fever Cardiovascular: denies: Chest Pain, Palpitations, Shortness of Breath Respiratory: denies: Cough, Hemoptysis, Orthopnea, PND, SOB, SOB on Exertion Gastrointestinal: denies: Constipation, Diarrhea, Melena, Nausea, Rectal Bleeding, Vomiting Musculoskeletal: reports: Back Pain Neurological: denies: Dizziness, Headache, Seizure, Syncope Labs: CBC, BMP 08/13/18 06:40 08/13/18 06:40 INR, PTT INR 1.39 (0.83-1.09) H 08/10/18 13:20 Problem List - Problems (1) Atrial fibrillation Code(s): I48.91 - UNSPECIFIED ATRIAL FIBRILLATION Qualifiers: Atrial fibrillation type: paroxysmal Qualified Code(s): I48.0 - Paroxysmal atrial fibrillation (2) CAD (coronary artery disease) Code(s): I25.10 - ATHSCL HEART DISEASE OF [place] CORONARY ARTERY W/O ANG PCTRS Qualifiers: Coronary Disease-Associated Artery/Lesion type: [place] artery [place] vs. transplanted heart: [place] heart Associated angina: without angina Qualified Code(s): I25.10 - Atherosclerotic heart disease of [place] coronary artery without angina pectoris (3) HLD (hyperlipidemia) Code(s): E78.5 - HYPERLIPIDEMIA, UNSPECIFIED Qualifiers: Hyperlipidemia type: pure hypercholesterolemia Qualified Code(s): E78.00 - Pure hypercholesterolemia, unspecified; E78.0 - Pure hypercholesterolemia (4) CVA (cerebral vascular accident) Code(s): I63.9 - CEREBRAL INFARCTION, UNSPECIFIED Qualifiers: CVA mechanism: unspecified Qualified Code(s): I63.9 - Cerebral infarction, unspecified (5) Diabetes Code(s): E11.9 - TYPE 2 DIABETES MELLITUS WITHOUT COMPLICATIONS Qualifiers: Diabetes mellitus type: type 2 Diabetes mellitus moth exterminator insulin use: without moth exterminator use Diabetes mellitus complication status: without complication Qualified Code(s): E11.9 - Type 2 diabetes mellitus without complications (6) Hypertension Code(s): I10 - ESSENTIAL (PRIMARY) HYPERTENSION Qualifiers: Hypertension type: essential hypertension Qualified Code(s): I10 - Essential (primary) hypertension Assessment/Plan 1. Generalized weakness with back pain 2. Gait instability 3. Atrial fibrillation with RVR 4. CAD, nonobstructive, angina pectoris 5. HTN/HCVD 6. DM 7. Hypercholesterolemia 8. Sepsis PLAN: 1. Continue Eliquis 5 mg BID 2. Continue Toprol XL (uptitrate as needed) 3. Continue Crestor 4. Continue Olmesartan or equivalent as it is nonformulary in the hospital - currently held as her BP is not elevated 5. Empiric antibiotics 6. Echocardiography to assess LV/RV and valvular function Further plans are to follow Benjamin Ward MD
[2018-08-13] MEDS ORDERED: MAGNESIUM OXIDE 400 MG TABLET (FP) PO ONE (10:00)
[2018-08-13] MEDS ORDERED: PT OWN MED DRAWER 7, Y5N ONE ×2 (10:53→13:53)
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
[2018-08-13] MEDS: COLLAGENASE CLOSTRIDIUM HIST. 30 GRAMS TUBE TP SCH (12:53)
--- NOTE | 2018-08-13 13:43 | ECHO ---
Name: MARCELO SALAZAR Exam:Adult Echocardiogram Study Date: 08/13/2018 09:43 AM Age: 82 yrs Reason For Study: A-Fib Height: 63 in Weight: 180 lb BSA: 1.8 m2 MMode/2D Measurements & Calculations IVSd: 0.87 cm Ao root diam: 2.7 cm LVIDd: 4.2 cm LA dimension: 3.3 cm LVIDs: 2.7 cm LVPWd: 0.87 cm EDV(Teich): 78.6 ml LVOT diam: 1.9 cm ESV(Teich): 26.7 ml Doppler Measurements & Calculations MV E max sebastian: 68.6 cm/sec Lat Peak E' Sebastian: 5.0 cm/sec MV A max sebastian: 86.9 cm/sec Lat E/e': 13.6 MV E/A: 0.79 Procedure A complete two-dimensional transthoracic echocardiogram was performed (2D, M-mode, Doppler and color flow Doppler). Technically limited study. Left Ventricle The left ventricle is normal in size. Left ventricular systolic function is normal. Ejection Fraction = 60- 65%. No regional wall motion abnormalities noted. Right Ventricle The right ventricle is not well visualized. Atria The left atrial size is normal. Right atrium not well visualized. Mitral Valve There is mild mitral annular calcification. There is no mitral regurgitation noted. Tricuspid Valve The tricuspid valve is not well visualized. Aortic Valve There is mild aortic sclerosis.;. No aortic regurgitation is present. Pulmonic Valve The pulmonic valve is not well visualized. Great Vessels The aortic root is normal size. Pericardium/Pleura There is no pericardial effusion. Interpretation Summary Technically limited study The left ventricle is normal in size. Left ventricular systolic function is normal. No regional wall motion abnormalities noted. Ejection Fraction = 60-65%. The right ventricle is not well visualized. The left atrial size is normal. Right atrium not well visualized. There is mild mitral annular calcification. The tricuspid valve is not well visualized. There is mild aortic sclerosis. No significant valvular regurgitations There is no pericardial effusion. Previous study is not available for comparison Benjamin Ward MD 08/13/2018 01:43 PM
[2018-08-13] MEDS: MORPHINE SULFATE 2 MG/ML VIAL IVPUSH PRN (14:17)
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
[2018-08-13] MEDS: SODIUM CHLORIDE 1,000 ML IV SCH (22:52)
[2018-08-13] MEDS: ROSUVASTATIN CA 10 MG TABLET (FP) PO SCH (23:01)
[2018-08-14] MEDS: SODIUM CHLORIDE 1,000 ML IV SCH (04:58)
[2018-08-14] MEDS: INSULIN (NOVOLOG) ASPART 100 UNITS/ML 10ML VIAL SQ SCH ×4 (06:45→22:38)
[2018-08-14] MEDS ORDERED: ALBUTEROL SO4 2.5/IPRATROPIUM 0.5 INH SOL 3 ML VIAL.NEB. NEB PRN (07:05)
--- NOTE | 2018-08-14 07:32 | PN ---
Physical Exam: SUBJECTIVE: Patient seen and examined no new issues overnight pt has b/l crackels at bases. We will stop her IV fluid. OBJECTIVE: Vital Signs Period Temp Pulse Resp BP Sys/Brar Pulse Ox Last 24 Hr 97.7 F-98.5 F 72-90 18- 121-147/55-75 92-96 GENERAL: The patient is awake, alert, and fully oriented, in no acute distress. HEAD: Normal with no signs of trauma. ENT: moist mucous membranes. NECK: Trachea midline, full range of motion, supple. LUNGS: Breath sounds equal, clear to auscultation bilaterally, no wheezes, crackles at bases , no accessory muscle use. HEART: s1s2 normal. no murmur ABDOMEN: Soft, nontender, nondistended, normoactive bowel sounds, no guarding, no rebound, EXTREMITIES: 2+ pulses, warm, well-perfused, no edema. NEUROLOGICAL:. Normal speech, gait not observed. PSYCH: Normal mood, normal affect. SKIN: Warm, dry, Laboratory Results - last 24 hr 08/13/18 08/13/18 08/13/18 06:40 06:40 11:25 WBC 3.3 L RBC 3.58 L Hgb 11.3 Hct 32.3 L MCV 90.3 MCH 31.6 MCHC 35.0 RDW 13.9 Plt Count 108 L MPV 8.5 Absolute Neuts (auto) 2.0 Neutrophils % 59.3 Lymphocytes % 25.2 D Monocytes % 10.2 Eosinophils % 4.9 H D Basophils % 0.4 Nucleated RBC % 0 Sodium 139 Potassium 3.9 Chloride 108 H Carbon Dioxide 26 Anion Gap 6 L BUN 13 Creatinine 0.8 Creat Clearance w eGFR > 60 POC Glucometer 173 Random Glucose 114 H Calcium 6.9 L* Phosphorus 2.8 Magnesium 1.8 08/13/18 08/13/18 08/14/18 16:54 22:58 05:46 WBC RBC Hgb Hct MCV MCH MCHC RDW Plt Count MPV Absolute Neuts (auto) Neutrophils % Lymphocytes % Monocytes % Eosinophils % Basophils % Nucleated RBC % Sodium Potassium Chloride Carbon Dioxide Anion Gap BUN Creatinine Creat Clearance w eGFR POC Glucometer 161 139 148 Random Glucose Calcium Phosphorus Magnesium Active Medications Generic Name Dose Route Start Last Admin Trade Name Freq PRN Reason Stop Dose Admin Acetaminophen 650 mg 08/10/18 17:20 08/12/18 20:41 Tylenol - PO 650 mg Q4H PRN Administration FEVER Albuterol/Ipratropium 1 amp 08/14/18 07:05 Duoneb - NEB Q6H PRN SHORTNESS OF BREATH Apixaban 5 mg 08/12/18 22:00 08/13/18 23:01 Eliquis - PO 5 mg BID FERMIN Administration Benzocaine/Menthol 1 each 08/12/18 14:09 08/13/18 09:22 Cepacol Lozenge - MM 1 each PRN PRN Administration SORE THROAT Collagenase 1 applic 08/11/18 13:15 08/13/18 12:53 Santyl - TP 1 applic DAILY FERMIN Administration Protocol Guaifenesin/Codeine Phosphate 5 ml 08/12/18 14:09 Robitussin Ac - PO TID PRN COUGH Insulin Aspart 1 units 08/10/18 22:00 08/14/18 06:45 Novolog Vial SQ Not Given ACHS FERMIN Protocol Lactobacillus Acidophilus 1 tab 08/11/18 10:00 08/13/18 09:22 Bacid - PO 1 tab DAILY FERMIN Administration Metoprolol Succinate 25 mg 08/11/18 10:00 08/13/18 09:22 Toprol Xl - PO 25 mg DAILY FERMIN Administration Rosuvastatin Calcium 10 mg 08/11/18 22:00 08/13/18 23:01 Crestor - PO 10 mg HS FERMIN Administration ASSESSMENT/PLAN: Assessment/Plan (1) Sepsis - lactic acidosis resolved - resolved - cultures negative -monitor off antibiotic (2) Back pain - Back pain improved -MRI reviewed; no acute pathology -PT consulted (3 ) Diabetes -diabetic diet -FSBS and SSI (4) Hypertension -continue toprol xl with hold parameters sbp< 110 and hr< 60 (5) HLD (hyperlipidemia -continue statin (6) CAD (coronary artery disease) -continue home regimen (7) Atrial fibrillation -cardiology consult appreciated -continue eliquis -rate controlled with toprol XL 25 daily -ECHO done on 08/13/18 reviewed (8) skin Byrd -continue Santyl -wound care on case fluid: orally allowed electrolyte: mag nutrition: diabetic diet dvt pro: eliquis gi pro: not required dispo: tele Visit type - Emergency Visit Emergency Visit: Yes ED Registration Date: 08/10/18 Care time: The patient presented to the Emergency Department on the above date and was hospitalized for further evaluation of their emergent condition. - New Patient This patient is new to me today: No - Critical Care Critical Care patient: No
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
--- NOTE | 2018-08-14 09:06 | PN ---
Progress Note (short form) - Note Progress Note: Chief Complaint: Events noted, notes reviewed, sitting in a chair, denies any chest pain or dyspnea, reporting diarrhea, sinus rhythm is noted History of Present Illness: Seen and examined on telemetry. Events noted, notes reviewed, sitting in a chair , denies any chest pain or dyspnea, reporting diarrhea, sinus rhythm is noted Echocardiography dated 08/13/18 revealed normal LV size and systolic function, LVEF 60-65%, no significant valvular regurgitation - Current Medication List Current Medications: Current Medications Acetaminophen (Tylenol -) 650 mg PO Q4H PRN PRN Reason: FEVER Last Admin: 08/12/18 20:41 Dose: 650 mg Albuterol/Ipratropium (Duoneb -) 1 amp NEB Q6H PRN PRN Reason: SHORTNESS OF BREATH Apixaban (Eliquis -) 5 mg PO BID [facility] Last Admin: 08/13/18 23:01 Dose: 5 mg Benzocaine/Menthol (Cepacol Lozenge -) 1 each MM PRN PRN PRN Reason: SORE THROAT Last Admin: 08/13/18 09:22 Dose: 1 each Collagenase (Santyl -) 1 applic TP DAILY [facility]; Protocol Last Admin: 08/13/18 12:53 Dose: 1 applic Guaifenesin/Codeine Phosphate (Robitussin Ac -) 5 ml PO TID PRN PRN Reason: COUGH Insulin Aspart (Novolog Vial) 1 units SQ ACHS [facility]; Protocol Last Admin: 08/14/18 06:45 Dose: Not Given Lactobacillus Acidophilus (Bacid -) 1 tab PO DAILY [facility] Last Admin: 08/13/18 09:22 Dose: 1 tab Metoprolol Succinate (Toprol Xl -) 25 mg PO DAILY [facility] Last Admin: 08/13/18 09:22 Dose: 25 mg Rosuvastatin Calcium (Crestor -) 10 mg PO HS [facility] Last Admin: 08/13/18 23:01 Dose: 10 mg Review of Systems Cardiovascular: As noted above Respiratory: denies: As noted above Gastrointestinal: denies: Nausea, Vomiting, Diarrhea, Constipation or Abdominal Discomfort Musculoskeletal: No Symptoms Reported Endocrine: No Symptoms Reported - Objective Vital Signs: Last Vital Signs Temp Pulse Resp BP Pulse Ox 98.5 F 90 18 147/74 96 08/14/18 02:00 08/14/18 02:00 08/14/18 02:00 08/14/18 02:00 08/13/18 21:00 Intake & Output 08/11/18 08/12/18 08/13/18 08/14/18 23:59 23:59 23:59 23:59 Intake Total 550 1770 1645 900 Balance 550 1770 1645 900 Constitutional: No Distress, Calm, Thin Neck: Supple Negative JVD Cardiovascular: S1 S2 Regular Rate and Rhythm Respiratory: Clear to A&P Bilaterally Gastrointestinal: Soft Benign Normal Bowel Sounds Ext: No Edema Labs: CBC, BMP 08/13/18 06:40 08/13/18 06:40 Hepatic Panel Total Bilirubin 0.4 mg/dL (0.2-1) 08/11/18 06:30 AST 84 U/L (15-37) H 08/11/18 06:30 ALT 36 U/L (13-61) 08/11/18 06:30 Alkaline Phosphatase 62 U/L (45-117) 08/11/18 06:30 Albumin 2.8 g/dl (3.4-5.0) L 08/11/18 06:30 Assessment/Plan ASSESSMENT: 1. Paroxysmal atrial fibrillation currently in sinus rhythm, [id number] score of 5 on DOAC's 2. CAD non-obstructive CAD angina pectoris 3. Diastolic LV dysfunction with clinical class 0 NYHA classifcation LV failure 4. HTN/HCVD 5. DM 6. Hypercholesterolemia 7. Sepsis syndrome, resolved 8. Gait instability PLAN: 1. Continue Eliquis 2. Continue Toprol XL, and uptitrate as needed 3. Continue Crestor 4. Resume Olmesartan or equivalent as it is non-formulary in the hospital Allen Ford MD
[2018-08-14] MEDS: APIXABAN 5 MG TABLET PO SCH ×2 (09:16→22:37)
[2018-08-14] MEDS: metoPROLOL SUCCINATE 25 MG TAB.SR.24H (FP) PO SCH (09:16)
[2018-08-14] MEDS: COLLAGENASE CLOSTRIDIUM HIST. 30 GRAMS TUBE TP SCH (09:16)
[2018-08-14] MEDS: LACTOBACILLUS ACIDOPHILUS 1 TABLET PO SCH (09:16)
[2018-08-14] MEDS ORDERED: ALBUTEROL SO4 0.083% IH SOL 2.5 MG/3 ML VIAL.NEB. NEB PRN (12:01)
--- NOTE | 2018-08-14 13:41 | PN ---
Teaching Attending Note Name of Resident: Aryan Deluca ATTENDING PHYSICIAN STATEMENT I saw and evaluated the patient. I reviewed the resident's note and discussed the case with the resident. I agree with the resident's findings and plan as documented. SUBJECTIVE: Ms Sierra complains of diarrhea and wheezing today. No cp, sob, n/v. OBJECTIVE: Last Vital Signs Temp Pulse Resp BP Pulse Ox 36.7 C 79 18 116/63 96 08/14/18 09:15 08/14/18 09:15 08/14/18 09:15 08/14/18 09:15 08/13/18 21:00 Gen: nad Pulm: wheezing in all lung linares CV: irreg irreg w/o m/r/g Abd: +bs, s/nt/nd Ext: no c/c/e CBC, BMP 08/13/18 06:40 08/13/18 06:40 ASSESSMENT AND PLAN: (1) Sepsis Assessment/Plan: -SIRS secondary to viral illness -resolved Code(s): A41.9 - SEPSIS, UNSPECIFIED ORGANISM (2) Back pain Assessment/Plan: -MRI normal -resolved -will need SNF placement Code(s): M54.9 - DORSALGIA, UNSPECIFIED Qualifiers: Back pain location: low back pain Chronicity: chronic Back pain laterality: bilateral Sciatica presence: without sciatica Qualified Code(s) : M54.5 - Low back pain; G89.29 - Other chronic pain (3) Lactic acid acidosis Assessment/Plan: -resolved with hydration Code(s): E87.2 - ACIDOSIS (4) Diabetes Assessment/Plan: -diabetic diet -FSBS and SSI Code(s): E11.9 - TYPE 2 DIABETES MELLITUS WITHOUT COMPLICATIONS Qualifiers: Diabetes mellitus type: type 2 Diabetes mellitus medical terminologist insulin use: without longterm use Diabetes mellitus complication status: without complication Qualified Code(s): E11.9 - Type 2 diabetes mellitus without complications (5) Hypertension Assessment/Plan: -continue toprol xl with hold parameters Code(s): I10 - ESSENTIAL (PRIMARY) HYPERTENSION (6) HLD (hyperlipidemia) Assessment/Plan: -continue statin Code(s): E78.5 - HYPERLIPIDEMIA, UNSPECIFIED (7) CAD (coronary artery disease) Assessment/Plan: -quiescent -continue home regimen Code(s): I25.10 - ATHSCL HEART DISEASE OF [place] CORONARY ARTERY W/O ANG PCTRS (8) Atrial fibrillation Assessment/Plan -cardiology following -continue toprol xl and eliquis Code(s): I48.91 - UNSPECIFIED ATRIAL FIBRILLATION (9) Byrd -continue Santyl -wound care following (10) Wheezing -will add scheduled duonebs -monitor for improvement (11) Diarrhea -will check c diff since was on rocephin -if negative, can use imodium Dispo -will need SNF placement, case d/w patient and daughter Problem List - Problems (1) Sepsis Code(s): A41.9 - SEPSIS, UNSPECIFIED ORGANISM (2) Back pain Code(s): M54.9 - DORSALGIA, UNSPECIFIED Qualifiers: Back pain location: low back pain Chronicity: chronic Back pain laterality: bilateral Sciatica presence: without sciatica Qualified Code(s) : M54.5 - Low back pain; G89.29 - Other chronic pain (3) Lactic acid acidosis Code(s): E87.2 - ACIDOSIS (4) Diabetes Code(s): E11.9 - TYPE 2 DIABETES MELLITUS WITHOUT COMPLICATIONS Qualifiers: Diabetes mellitus type: type 2 Diabetes mellitus medical terminologist insulin use: without longterm use Diabetes mellitus complication status: without complication Qualified Code(s): E11.9 - Type 2 diabetes mellitus without complications (5) Hypertension Code(s): I10 - ESSENTIAL (PRIMARY) HYPERTENSION Qualifiers: Hypertension type: essential hypertension Qualified Code(s): I10 - Essential (primary) hypertension (6) HLD (hyperlipidemia) Code(s): E78.5 - HYPERLIPIDEMIA, UNSPECIFIED Qualifiers: Hyperlipidemia type: pure hypercholesterolemia Qualified Code(s): E78.00 - Pure hypercholesterolemia, unspecified; E78.0 - Pure hypercholesterolemia (7) CAD (coronary artery disease) Code(s): I25.10 - ATHSCL HEART DISEASE OF [place] CORONARY ARTERY W/O ANG PCTRS Qualifiers: Coronary Disease-Associated Artery/Lesion type: [place] artery [place] vs. transplanted heart: [place] heart Associated angina: without angina Qualified Code(s): I25.10 - Atherosclerotic heart disease of [place] coronary artery without angina pectoris (8) Atrial fibrillation Code(s): I48.91 - UNSPECIFIED ATRIAL FIBRILLATION Qualifiers: Atrial fibrillation type: paroxysmal Qualified Code(s): I48.0 - Paroxysmal atrial fibrillation
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
[2018-08-14] MEDS: ALBUTEROL SO4 2.5/IPRATROPIUM 0.5 INH SOL 3 ML VIAL.NEB. NEB SCH ×2 (15:40→20:25)
[2018-08-14] MEDS: ROSUVASTATIN CA 10 MG TABLET (FP) PO SCH (22:37)
[2018-08-14] MEDS: guaiFENesin/CODEINE 5 ML UNIT-DOSE CUPS PO PRN (22:37)
[2018-08-15] MEDS: INSULIN (NOVOLOG) ASPART 100 UNITS/ML 10ML VIAL SQ SCH ×4 (06:20→21:05)
[2018-08-15 06:52] LABS: BASO % 0.5 % (0-2.0); HEMATOCRIT 31.1 % (32.4-45.2); HEMOGLOBIN 10.8 GM/dL (10.7-15.3); LYMPH % 30.2 % (8-40); MCH 30.8 pg (25.7-33.7); MCHC 34.8 g/dl (32.0-36.0); MEAN CELL VOLUME 88.5 fl (80-96); MEAN PLT VOLUME 8.4 fl (7.5-11.1); MONO % 9.6 % (3.8-10.2); NEUT % 54.7 % (42.8-82.8); PLATELET COUNT 105 K/MM3 (134-434); RBC 3.52 M/mm3 (3.60-5.2); RDW 13.7 % (11.6-15.6); WHITE BLOOD COUNT 3.2 K/mm3 (4.0-10.0)
[2018-08-15 07:25] LABS: ANION GAP 9 MMOL/L (8-16); BLOOD UREA NITROGEN 14 mg/dL (7-18); CALCIUM 7.4 mg/dL (8.5-10.1); CHLORIDE 105 mmol/L (98-107); CO2 25 mmol/L (21-32); CREATININE 0.7 mg/dL (0.55-1.3); GLUCOSE,RANDOM 141 mg/dL (74-106); MAGNESIUM 1.7 mg/dL (1.8-2.4); PHOSPHOROUS 3.1 mg/dL (2.5-4.9); POTASSIUM 3.8 mmol/L (3.5-5.1); SODIUM 139 mmol/L (136-145)
[2018-08-15] MEDS ORDERED: ALBUTEROL SO4 2.5/IPRATROPIUM 0.5 INH SOL 3 ML VIAL.NEB. NEB ONE (07:38)
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
[2018-08-15] MEDS ORDERED: MAGNESIUM OXIDE 400 MG TABLET (FP) PO ONE (07:50)
[2018-08-15] MEDS: ALBUTEROL SO4 2.5/IPRATROPIUM 0.5 INH SOL 3 ML VIAL.NEB. NEB SCH ×3 (08:00→20:37)
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
[2018-08-15] MEDS: APIXABAN 5 MG TABLET PO SCH ×2 (09:24→21:07)
[2018-08-15] MEDS: metoPROLOL SUCCINATE 25 MG TAB.SR.24H (FP) PO SCH (09:24)
[2018-08-15] MEDS: LACTOBACILLUS ACIDOPHILUS 1 TABLET PO SCH (09:24)
[2018-08-15] MEDS: guaiFENesin/CODEINE 5 ML UNIT-DOSE CUPS PO PRN ×2 (09:26→18:23)
[2018-08-15] MEDS: COLLAGENASE CLOSTRIDIUM HIST. 30 GRAMS TUBE TP SCH (09:27)
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
[2018-08-15] MEDS ORDERED: FUROSEMIDE 40 MG/4 ML INJECTABLE VIAL IVPUSH ONE (10:54)
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
[2018-08-15] MEDS ORDERED: POTASSIUM CHLORIDE ORAL LIQUID 20 MEQ/15 ML PO ONE (13:50)
[2018-08-15] MEDS: BENZOCAINE/MENTH/CETYLPYRD CL 1 EACH LOZENGE MM PRN (13:52)
[2018-08-15] MEDS: ROSUVASTATIN CA 10 MG TABLET (FP) PO SCH (21:07)
[2018-08-16] MEDS: guaiFENesin/CODEINE 5 ML UNIT-DOSE CUPS PO PRN (02:35)
[2018-08-16] MEDS: INSULIN (NOVOLOG) ASPART 100 UNITS/ML 10ML VIAL SQ SCH ×2 (06:04→11:31)
[2018-08-16] MEDS: ALBUTEROL SO4 2.5/IPRATROPIUM 0.5 INH SOL 3 ML VIAL.NEB. NEB SCH (07:24)
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
[2018-08-16 07:53] LABS: ANION GAP 6 MMOL/L (8-16); BLOOD UREA NITROGEN 17 mg/dL (7-18); CALCIUM 7.4 mg/dL (8.5-10.1); CHLORIDE 103 mmol/L (98-107); CO2 28 mmol/L (21-32); CREATININE 0.8 mg/dL (0.55-1.3); GLUCOSE,RANDOM 140 mg/dL (74-106); MAGNESIUM 1.9 mg/dL (1.8-2.4); SODIUM 137 mmol/L (136-145)
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
[2018-08-16] MEDS: APIXABAN 5 MG TABLET PO SCH (09:13)
[2018-08-16] MEDS: metoPROLOL SUCCINATE 25 MG TAB.SR.24H (FP) PO SCH (09:13)
[2018-08-16] MEDS: LACTOBACILLUS ACIDOPHILUS 1 TABLET PO SCH (09:13)
[2018-08-16] MEDS: COLLAGENASE CLOSTRIDIUM HIST. 30 GRAMS TUBE TP SCH (09:14)
[2018-08-16 09:16] VITALS: BP 103/59; PULSE 78; TEMP 98.4
[2018-08-16] MEDS ORDERED: LOSARTAN POTASSIUM 50 MG TABLET (FP) PO SCH (10:00)
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
--- NOTE | 2018-08-16 11:24 | PN ---
Progress Note, Physician - Current Medication List Current Medications: Active Medications Acetaminophen (Tylenol -) 650 mg PO Q4H PRN PRN Reason: FEVER Last Admin: 08/12/18 20:41 Dose: 650 mg Albuterol Sulfate (Ventolin 0.083% Nebulizer Soln -) 1 amp NEB Q4H PRN PRN Reason: SHORT OF BREATH/WHEEZING Albuterol/Ipratropium (Duoneb -) 1 amp NEB RTID [facility] Last Admin: 08/16/18 07:24 Dose: 1 amp Apixaban (Eliquis -) 5 mg PO BID [facility] Last Admin: 08/16/18 09:13 Dose: 5 mg Benzocaine/Menthol (Cepacol Lozenge -) 1 each MM PRN PRN PRN Reason: SORE THROAT Last Admin: 08/15/18 13:52 Dose: 1 each Collagenase (Santyl -) 1 applic TP DAILY [facility]; Protocol Last Admin: 08/16/18 09:14 Dose: 1 applic Guaifenesin/Codeine Phosphate (Robitussin Ac -) 5 ml PO TID PRN PRN Reason: COUGH Last Admin: 08/16/18 02:35 Dose: 5 ml Insulin Aspart (Novolog Vial) 1 units SQ ACHS [facility]; Protocol Last Admin: 08/16/18 06:04 Dose: Not Given Lactobacillus Acidophilus (Bacid -) 1 tab PO DAILY [facility] Last Admin: 08/16/18 09:13 Dose: 1 tab Losartan Potassium (Cozaar -) 50 mg PO DAILY [facility] Last Admin: 08/16/18 09:13 Dose: 50 mg Metoprolol Succinate (Toprol Xl -) 25 mg PO DAILY [facility] Last Admin: 08/16/18 09:13 Dose: 25 mg Rosuvastatin Calcium (Crestor -) 10 mg PO HS [facility] Last Admin: 08/15/18 21:07 Dose: 10 mg - Objective Vital Signs: Vital Signs Temperature 98.4 F 08/16/18 09:00 Pulse Rate 78 08/16/18 09:00 Respiratory Rate 18 08/16/18 09:00 Blood Pressure 103/59 L 08/16/18 09:00 O2 Sat by Pulse Oximetry (%) 96 08/16/18 08:24 Labs: CBC, BMP 08/15/18 06:00 08/16/18 06:30 INR, PTT INR 1.39 (0.83-1.09) H 08/10/18 13:20
[2018-08-16] MEDS ORDERED: INSULIN SLIDING SCALE (NOVOLOG) 1 VIAL SQ ONE (11:30)
== END 2018-08-16 11:58 | DRG 872 ==
LOC: JER 12:23 → JERBED 15:13 → J4S 21:59
PROVIDERS: ADMIT Internal Medicine; ATTEND Internal Medicine
DX: A41.89 Other specified sepsis (principal); E87.2 Acidosis; J98.11 Atelectasis; M54.5 Low back pain; I48.0 Paroxysmal atrial fibrillation; E11.9 Type 2 diabetes mellitus without complications; T21.21XA Burn of second degree of chest wall, initial encounter; T21.22XA Burn of second degree of abdominal wall, initial encounter; I45.10 Unspecified right bundle-branch block; I11.0 Hypertensive heart disease with heart failure; I50.9 Heart failure, unspecified; E78.5 Hyperlipidemia, unspecified; I25.119 Atherosclerotic heart disease of native coronary artery with unspecified angina pectoris; R26.9 Unspecified abnormalities of gait and mobility; D72.829 Elevated white blood cell count, unspecified; E66.9 Obesity, unspecified; Z68.31 Body mass index [BMI] 31.0-31.9, adult; X17.XXXA Contact with hot engines, machinery and tools, initial encounter; Y93.9 Activity, unspecified; Y92.89 Other specified places as the place of occurrence of the external cause; Y99.9 Unspecified external cause status
CPT/HCPCS: 36415; 71045-TC-FY; 71275-TC; 72147-TC; 72149-TC; 74174-TC; 80048; 80053; 81003; 82550; 82803; 82962; 83605; 83735; 84100; 84484; 85025; 85610; 85730; 86850; 86900; 86901; 87040; 87086; 87804; 93005; 93010; 93306-TC; 94010; 94640; 94761; 97116-GP; 97162-GP; 99285-25; J0131; J7030

== ENCOUNTER 2018-09-16 12:13 | Observation (INO) | payer OTHER ==
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
[2018-09-16] MEDS ORDERED: ACETAMINOPHEN 325 MG TABLET (FP) PO ONE (12:48)
[2018-09-16] MEDS ORDERED: SODIUM CHLORIDE 0.9% 500 ML INFUS.BAG IV ONE (12:49)
[2018-09-16] MEDS ORDERED: ACETAMINOPHEN INJECTION 100 ML IVPB ONE (12:51)
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
[2018-09-16 13:15] LABS: HEMATOCRIT 31.6 % (32.4-45.2); HEMOGLOBIN 10.6 GM/dL (10.7-15.3); MCH 30.8 pg (25.7-33.7); MCHC 33.6 g/dl (32.0-36.0); MEAN CELL VOLUME 91.5 fl (80-96); MEAN PLT VOLUME 8.4 fl (7.5-11.1); PLATELET COUNT 161 K/MM3 (134-434); RBC 3.45 M/mm3 (3.60-5.2); RDW 14.3 % (11.6-15.6); WHITE BLOOD COUNT 8.1 K/mm3 (4.0-10.0)
[2018-09-16 13:45] LABS: ALBUMIN 3.1 g/dl (3.4-5.0); ALK PHOS 65 U/L (45-117); ANION GAP 7 MMOL/L (8-16); BILIRUBIN,TOTAL 0.4 mg/dL (0.2-1); BLOOD UREA NITROGEN 41 mg/dL (7-18); CALCIUM 8.4 mg/dL (8.5-10.1); CHLORIDE 104 mmol/L (98-107); CO2 26 mmol/L (21-32); CREATININE 1.7 mg/dL (0.55-1.3); POTASSIUM 4.5 mmol/L (3.5-5.1); SGOT/AST 30 U/L (15-37); SGPT/ALT 20 U/L (13-61); SODIUM 136 mmol/L (136-145)
[2018-09-16 13:46] LABS: GLUCOSE,RANDOM 329 mg/dL (74-106)
[2018-09-16 14:40] LABS: OSMOLALITY,SERUM 315 mosm/kg (278-305)
[2018-09-16 14:42] LABS: ACETONE SERUM NEGATIVE (NEGATIVE)
[2018-09-16 16:19] LABS: URINE APPEARANCE CLEAR; URINE BILIRUBIN NEGATIVE (NEGATIVE); URINE COLOR YELLOW; URINE GLUCOSE (UA) 1+ (NEGATIVE); URINE KETONE NEGATIVE (NEGATIVE); URINE LEUK ESTERASE NEGATIVE (NEGATIVE); URINE NITRITE NEGATIVE (NEGATIVE); URINE PROTEIN NEGATIVE (NEGATIVE); URINE UROBILINOGEN 0.2 mg/dL (0.2-1.0)
--- NOTE | 2018-09-16 16:51 | HP ---
CHIEF COMPLAINT: headache, weakness, decreased oral intake PCP: Dr. Sheikh HISTORY OF PRESENT ILLNESS: 82 yof with PMhx of CAD (non-obstructive), angina pectoris, HTN/HCVD, DM, hypercholesterolemia and degenerative vertebral disc disease, admitted to [facility] in 07/2018, with back pain, when sustained 2nd degree diop to left chest wall from EKG leads in MRI,also found with new onset afib on eliquis, d/sunshine to [facility] , sent home on 09/12/2018 comes back with headache, weakness and decreased oral intake. Patient reports headache generalized "like an ache" more in the morning, resolves through the day, more for the last 3 days. Denies any fevers, chills, vision or speech disturbances, photophobia, neck pain, focal weakness, fall or LOC. Denies headache currently. Some improvement with tylenol. home SBP 110s- 130s. Also reports decreased oral intake including food and fluids, since her recent hospitalization, poor appetite and generalized fatigue and weakness. Weight loss 10 lbs in last 1 month. No fevers, chills, cough, dyspnea, abdominal or urinary symptoms. Was seen by [facility] on Monday and advised to hold lasix and BP meds. Home Blood sugars have been 140s, was seen by Dr. Pettit 2 days ago and night Toujeo was decreased to 14 units. She has been seeing Dr. Burgess in wound care for her chest wall wounds. ER course was notable for: (1) CT head neg for acute process (2) 1 L IVF bolus (3) Acetaminophen Recent Travel: denies PAST MEDICAL HISTORY: CAD (non-obstructive), angina pectoris, HTN/HCVD, DM, hypercholesterolemia and degenerative vertebral disc disease, admitted to [facility] in 07/2018, with back pain, when sustained 2nd degree diop to left chest wall from EKG leads in MRI, also found with new onset afib on eliquis PAST SURGICAL HISTORY: cholecystectomy Social History: Smoking: never Alcohol: occasionally, last 2 months ago Drugs: never recently discharged from [facility], daughter currently lives with her, uses walker to ambulate Family History: Allergies No Known Allergies Allergy (Verified 09/16/18 12:20) HOME MEDICATIONS: Home Medications Medication Instructions Recorded Clopidogrel Bisulfate [Plavix -] 75 mg PO DAILY 02/21/14 Metoprolol Succinate [Toprol XL -] 25 mg PO DAILY 02/21/14 Repaglinide [Prandin -] 1 mg PO TID 11/23/16 Apixaban [Eliquis -] 5 mg PO BID tablet 08/16/18 Furosemide [Lasix -] 40 mg PO DAILY #30 tablet 08/16/18 Collagenase Clostridium Hist. 1 applic TP DAILY #90 oint...g. 09/07/18 [Santyl] Acetaminophen 650 mg PO Q6H PRN 09/16/18 Albuterol 2.5/Ipratropium 0.5 1 amp NEB TID PRN 09/16/18 [Duoneb -] Insulin (Novolog) [Novolog] 8 units SQ ACBK 09/16/18 Insulin Aspart [Novolog] 6 unit SQ ACDIN 09/16/18 Insulin Aspart [Novolog] 8 unit SQ 09/16/18 Insulin Glargine,Hum.rec.anlog 14 unit SQ HS 09/16/18 [Toujeo Solostar] Melatonin 3 mg PO HS PRN 09/16/18 Olmesartan/Hydrochlorothiazide 0.5 tablet PO DAILY 09/16/18 [Benicar Hct 40-25 mg Tablet] Repaglinide 1 mg PO TID 09/16/18 Rosuvastatin Calcium [Crestor] 10 mg PO DAILY 09/16/18 REVIEW OF SYSTEMS CONSTITUTIONAL: Present: generalized weakness, malaise, loss of appetite, weight change loss 10 lbs in last 1 month Absent: fever, chills, diaphoresis, HEENT: Absent: rhinorrhea, nasal congestion, throat pain, throat swelling, difficulty swallowing, mouth swelling, ear pain, eye pain, visual changes CARDIOVASCULAR: Absent: chest pain, syncope, palpitations, irregular heart rate, lightheadedness , peripheral edema RESPIRATORY: Absent: cough, shortness of breath, dyspnea with exertion, orthopnea, wheezing, stridor, hemoptysis GASTROINTESTINAL: Absent: abdominal pain, abdominal distension, nausea, vomiting, diarrhea, constipation, melena, hematochezia GENITOURINARY: Absent: dysuria, frequency, urgency, hesitancy, hematuria, flank pain, genital pain MUSCULOSKELETAL: Absent: myalgia, arthralgia, joint swelling, back pain, neck pain SKIN: Absent: rash, itching, pallor HEMATOLOGIC/IMMUNOLOGIC: Absent: easy bleeding, easy bruising, lymphadenopathy, frequent infections ENDOCRINE: Present: weight loss 10 lbs over last 1 month Absent: unexplained weight gain, heat intolerance, cold intolerance NEUROLOGIC: Present: headache Absent: Focal weakness or paresthesias, dizziness, unsteady gait, seizure, mental status changes, bladder or bowel incontinence PSYCHIATRIC: Absent: anxiety, depression, suicidal or homicidal ideation, hallucinations. PHYSICAL EXAMINATION Vital Signs - 24 hr 09/16/18 12:16 Temperature 97.6 F Pulse Rate 70 Respiratory 16 Rate Blood Pressure 130/70 O2 Sat by Pulse 100 Oximetry (%) Intake & Output 09/13/18 09/14/18 09/15/18 09/16/18 23:59 23:59 23:59 23:59 Weight 160 lb GENERAL: Awake, alert, and fully oriented, in no acute distress. HEAD: Normal with no signs of trauma. EYES: Pupils equal, round and reactive to light, extraocular movements intact, sclera anicteric, conjunctiva clear. No lid lag. EARS, NOSE, THROAT: Ears normal, nares patent, oropharynx clear without exudates. dry lips and mucous membrane NECK: Normal range of motion, supple, no JVD LUNGS: Breath sounds equal, clear to auscultation bilaterally. No wheezes, and no crackles. No accessory muscle use. HEART: Regular rate and rhythm, normal S1 and S2 ABDOMEN: Soft, nontender, not distended, normoactive bowel sounds, no guarding, no rebound, no masses. no suprapubic or CVA tenderness MUSCULOSKELETAL: Normal range of motion at all joints. No bony deformities or tenderness. No CVA tenderness. UPPER EXTREMITIES: 2+ pulses, warm, well-perfused. No cyanosis. No clubbing. No peripheral edema. LOWER EXTREMITIES: 2+ pulses, warm, well-perfused. No calf tenderness. No peripheral edema. NEUROLOGICAL: AAOx3, PERRL, facial symmetry, power 5/5, tongue midline, no pronator drift, Cranial nerves II-XII intact. Normal speech. Gait not observed. PSYCHIATRIC: Cooperative. Good eye contact. Flat affect SKIN: Warm, dry, normal turgor, no rashes or lesions noted, normal capillary refill. Laboratory Results - last 24 hr 09/16/18 09/16/18 09/16/18 13:00 13:00 15:54 WBC 8.1 RBC 3.45 L Hgb 10.6 L Hct 31.6 L MCV 91.5 MCH 30.8 MCHC 33.6 RDW 14.3 Plt Count 161 D MPV 8.4 Sodium 136 Potassium 4.5 Chloride 104 Carbon Dioxide 26 Anion Gap 7 L BUN 41 H Creatinine 1.7 H Creat Clearance w eGFR 28.70 Random Glucose 329 H* Serum Osmolality 315 H Calcium 8.4 L Total Bilirubin 0.4 AST 30 ALT 20 Alkaline Phosphatase 65 Troponin I < 0.02 Total Protein 7.0 Albumin 3.1 L Urine Color Yellow Urine Appearance Clear Urine pH 5.0 Ur Specific Williams 1.021 Urine Protein Negative Urine Glucose (UA) 1+ H Urine Ketones Negative Urine Blood Negative Urine Nitrite Negative Urine Bilirubin Negative Urine Urobilinogen 0.2 Ur Leukocyte Esterase Negative Acetone, Qual Negative L 09/16/18 16:00 WBC RBC Hgb Hct MCV MCH MCHC RDW Plt Count MPV Sodium Potassium Chloride Carbon Dioxide Anion Gap BUN Creatinine Creat Clearance w eGFR Random Glucose Serum Osmolality Calcium Total Bilirubin AST ALT Alkaline Phosphatase Troponin I < 0.02 Total Protein Albumin Urine Color Urine Appearance Urine pH Ur Specific Williams Urine Protein Urine Glucose (UA) Urine Ketones Urine Blood Urine Nitrite Urine Bilirubin Urine Urobilinogen Ur Leukocyte Esterase Acetone, Qual EKG NSR, low voltage CT brain results reviewed CXR: decreased effort, no acute process ASSESSMENT/PLAN: 82 yof with PMhx of CAD (non-obstructive), angina pectoris, HTN/HCVD, DM, hypercholesterolemia and degenerative vertebral disc disease, admitted to [facility] in 07/2018, with back pain, when sustained 2nd degree diop to left chest wall from EKG leads in MRI admitted with headache, weakness, AMINAH, poor oral intake and hyperglycemia -AMINAH, suspect from hpyovolumia/poor oral intake/hyperglycemia/ACEI/lasix , r/o ATN from continuation of anti-hypertensives -Weakness, r/o infection, no focal evidence so far -Headache, ?triggered by hypovolumia, r/o migraine, low suspicion for primary neurological process -Left chest wall 2nd degree diop -Hyperglycemia, ?From recently decreased insulin, r/o infection -Recent new onset Atrial fibrillation on eliquis -HTN -IDDM -HLD -Degenerative vertebral disc disease Plan: IVF, monitor renal function. Hold lasix/ACEI. Continue toprol as tolerated. Urine studies including lytes. Additional kidney/bladder imaging if fails to improve with hydration. Bladder scan x 1. Wound care consult. Patient on both ?plavix and eliquis at [facility] and home. Unclear reasons. Will d/c plavix. Hold eliquis today, resume in AM based on renal function. Novolog ISS, Levemir 20 units hs, diabetic diet. Check A1c. DVTPPX on eliquis Dispo admit to obs. PT eval and CM consult for d/c planning. Anticipate d/c in 24 hour if renal function improved and no new concerns. Plan discussed with patient and daughter at bedside in detail, all questions answered. total admit time spent 60 min. Visit type - Emergency Visit Emergency Visit: Yes Care time: The patient presented to the Emergency Department on the above date and was hospitalized for further evaluation of their emergent condition. - New Patient This patient is new to me today: Yes Date on this admission: 09/16/18 - Critical Care Critical Care patient: No
[2018-09-16] MEDS ORDERED: ACETAMINOPHEN 325 MG TABLET (FP) PO PRN (17:04)
[2018-09-16] MEDS ORDERED: SODIUM CHLORIDE 1,000 ML IV SCH (17:15)
[2018-09-16] MEDS: COLLAGENASE CLOSTRIDIUM HIST. 30 GRAMS TUBE TP SCH (18:23)
[2018-09-16] MEDS ORDERED: SODIUM CHLORIDE 250 ML IV STA (18:25)
[2018-09-16] MEDS ORDERED: COLLAGENASE CLOSTRIDIUM HIST. 30 GRAMS TUBE TP SCH (21:15)
[2018-09-16] MEDS ORDERED: INSULIN (LEVEMIR) 100 UNITS/ML UNITS SQ SCH (22:00)
[2018-09-16] MEDS ORDERED: INSULIN (NOVOLOG) ASPART 100 UNITS/ML 10ML VIAL ONE (22:31)
[2018-09-16] MEDS: INSULIN SLIDING SCALE (NOVOLOG) 1 VIAL SQ SCH (22:38)
[2018-09-17] MEDS: INSULIN SLIDING SCALE (NOVOLOG) 1 VIAL SQ SCH ×3 (06:00→17:35)
[2018-09-17 06:55] LABS: BASO % 0.6 % (0-2.0); HEMATOCRIT 29.2 % (32.4-45.2); HEMOGLOBIN 9.6 GM/dL (10.7-15.3); LYMPH % 22.3 % (8-40); MCH 30.1 pg (25.7-33.7); MCHC 32.8 g/dl (32.0-36.0); MEAN CELL VOLUME 91.9 fl (80-96); MEAN PLT VOLUME 8.6 fl (7.5-11.1); MONO % 7.9 % (3.8-10.2); NEUT % 64.2 % (42.8-82.8); PLATELET COUNT 142 K/MM3 (134-434); RBC 3.18 M/mm3 (3.60-5.2); RDW 14.6 % (11.6-15.6); WHITE BLOOD COUNT 6.5 K/mm3 (4.0-10.0)
[2018-09-17 07:38] LABS: ALBUMIN 2.7 g/dl (3.4-5.0); ALK PHOS 55 U/L (45-117); ANION GAP 7 MMOL/L (8-16); BILIRUBIN,TOTAL 0.4 mg/dL (0.2-1); BLOOD UREA NITROGEN 29 mg/dL (7-18); CALCIUM 7.6 mg/dL (8.5-10.1); CHLORIDE 113 mmol/L (98-107); CO2 23 mmol/L (21-32); CREATININE 1.2 mg/dL (0.55-1.3); GLUCOSE,RANDOM 104 mg/dL (74-106); MAGNESIUM 2.2 mg/dL (1.8-2.4); PHOSPHOROUS 2.2 mg/dL (2.5-4.9); POTASSIUM 3.7 mmol/L (3.5-5.1); SGOT/AST 24 U/L (15-37); SGPT/ALT 17 U/L (13-61); SODIUM 143 mmol/L (136-145); TOT PROT 6.1 g/dl (6.4-8.2)
--- NOTE | 2018-09-17 07:51 | CONSULT ---
- Consultation REQUESTING PROVIDER: CONSULT REQUEST: We have been asked to surgically evaluate this patient for ( chest wall diop). PCP:Vazquez Rodriguez MD HISTORY OF PRESENT ILLNESS: 82 y/o Fw/ PMHx CAD (non-obstructive), angina pectoris, HTN/HCVD, DM, hypercholesterolemia and degenerative vertebral disc disease, admitted to [facility] in 07/2018, with back pain, when sustained 2nd degree diop to left chest wall from EKG leads in MRI,also found with new onset afib on eliquis, d/sunshine to [facility] [place] , sent home on 09/12/2018 now re-admitted with headache, weakness and decreased oral intake. Called by medical team for recommendations for chest wall diop. Pt reports she she has been at [facility], chest diop have been treated with daily Xeroform. Has been seeing Dr Burgess in wound care. Currently being evaluated for HBO therapy. PMHx: as above PSHx: cholecystectomy Home Medications Medication Instructions Recorded Clopidogrel Bisulfate [Plavix -] 75 mg PO DAILY 02/21/14 Metoprolol Succinate [Toprol XL -] 25 mg PO DAILY 02/21/14 Repaglinide [Prandin -] 1 mg PO TID 11/23/16 Apixaban [Eliquis -] 5 mg PO BID tablet 08/16/18 Furosemide [Lasix -] 40 mg PO DAILY #30 tablet 08/16/18 Collagenase Clostridium Hist. 1 applic TP DAILY #90 oint...g. 09/07/18 [Santyl] Acetaminophen 650 mg PO Q6H PRN 09/16/18 Albuterol 2.5/Ipratropium 0.5 1 amp NEB TID PRN 09/16/18 [Duoneb -] Insulin (Novolog) [Novolog] 8 units SQ ACBK 09/16/18 Insulin Aspart [Novolog] 6 unit SQ ACDIN 09/16/18 Insulin Aspart [Novolog] 8 unit SQ AC 09/16/18 Insulin Glargine,Hum.rec.anlog 14 unit SQ HS 09/16/18 [Toujeo Solostar] Melatonin 3 mg PO HS PRN 09/16/18 Olmesartan/Hydrochlorothiazide 0.5 tablet PO DAILY 09/16/18 [Benicar Hct 40-25 mg Tablet] Repaglinide 1 mg PO TID 09/16/18 Rosuvastatin Calcium [Crestor] 10 mg PO DAILY 09/16/18 Allergies Allergy/AdvReac Type Severity Reaction Status Date / Time No Known Allergies Allergy Verified 09/16/18 12:20 REVIEW OF SYSTEMS: CONSTITUTIONAL: Absent: fever, chills CARDIOVASCULAR: Absent: chest pain GASTROINTESTINAL: Absent: abdominal pain PHYSICAL EXAM: GENERAL: Awake, alert, and fully oriented, in no acute distress. HEAD: Normal with no signs of trauma. Chest: Large, approx 4x4 circular wound L chest wall, clean wound base, + granulation tissue, no erythema or drainage, Lower left chest wall with 3x3cm wound, with +granulation tissue, no erythema or drainage, right chest with 2x1.5 cm linear wound, healing with minimal dried fibrinous exudate at center. No erythema or drainage. Righ abdomen with 3x2cm ulcer, clean based no erythema/ drainage. LUNGS: Unlabored, No accessory muscle use on RA Vital Signs Temperature 98 F 09/17/18 06:10 Pulse Rate 69 09/17/18 06:10 Respiratory Rate 18 09/17/18 06:10 Blood Pressure 111/56 L 09/17/18 06:10 O2 Sat by Pulse Oximetry (%) 100 09/16/18 12:16 Lab Results WBC 6.5 K/mm3 (4.0-10.0) 09/17/18 06:15 RBC 3.18 M/mm3 (3.60-5.2) L 09/17/18 06:15 Hgb 9.6 GM/dL (10.7-15.3) L 09/17/18 06:15 Hct 29.2 % (32.4-45.2) L 09/17/18 06:15 MCV 91.9 fl (80-96) 09/17/18 06:15 MCHC 32.8 g/dl (32.0-36.0) 09/17/18 06:15 RDW 14.6 % (11.6-15.6) 09/17/18 06:15 Plt Count 142 K/MM3 (134-434) 09/17/18 06:15 Sodium 143 mmol/L (136-145) 09/17/18 06:15 Potassium 3.7 mmol/L (3.5-5.1) 09/17/18 06:15 Chloride 113 mmol/L (98-107) H 09/17/18 06:15 Carbon Dioxide 23 mmol/L (21-32) 09/17/18 06:15 Anion Gap 7 MMOL/L (8-16) L 09/17/18 06:15 BUN 29 mg/dL (7-18) H 09/17/18 06:15 Creatinine 1.2 mg/dL (0.55-1.3) 09/17/18 06:15 Random Glucose 104 mg/dL (74-106) 09/17/18 06:15 Calcium 7.6 mg/dL (8.5-10.1) L 09/17/18 06:15 A/P: 82 y/o Fw/ PMHx CAD (non-obstructive), angina pectoris, HTN/HCVD, DM, hypercholesterolemia and degenerative vertebral disc disease, admitted to [facility] in 07/2018, with back pain, when sustained 2nd degree diop to left chest wall from EKG leads in MRI,also found with new onset afib on eliquis, d/sunshine to [facility] [place] , sent home on 09/12/2018 now re-admitted with headache, weakness and decreased oral intake. Called by medical team for recommendations for chest wall diop. Recommend Silvadene to diop, cover with 4x4 and papertape, change daily Remainder of care per medical team F/ with Dr Burgess as previously scheduled D/w attending Dr Burgess
--- NOTE | 2018-09-17 09:59 | EKG ---
Test Reason : Blood Pressure : / mmHG Vent. Rate : 065 BPM Atrial Rate : 065 BPM P-R Int : 196 ms QRS Dur : 090 ms QT Int : 430 ms P-R-T Axes : 050 -08 000 degrees QTc Int : 447 ms NORMAL SINUS RHYTHM LOW VOLTAGE QRS CANNOT RULE OUT ANTERIOR INFARCT , AGE UNDETERMINED ABNORMAL ECG WHEN COMPARED WITH ECG OF 12-AUG-2018 09:52, NO SIGNIFICANT CHANGE WAS FOUND Confirmed by NOHEMY DE LA O, KALEB ([id number]) on 09/17/2018 9:59:20 AM Referred By: Confirmed By:KALEB SLATER MD
[2018-09-17] MEDS ORDERED: metoPROLOL SUCCINATE 25 MG TAB.SR.24H (FP) PO SCH (10:00)
[2018-09-17] MEDS ORDERED: NAPH,MB-DB/K PH,MBDB POWDER PACKET PO SCH (10:00)
[2018-09-17] MEDS ORDERED: SILVER SULFADIAZINE 1% TOP CREAM 50 GM JAR TP SCH (11:15)
[2018-09-17] MEDS ORDERED: APIXABAN 5 MG TABLET PO SCH (11:30)
--- NOTE | 2018-09-17 11:30 | DS ---
Physical Exam: SUBJECTIVE: Patient seen and examined, no headache or dizziness. weakness improved. Did not eat breakfast well as "doesn't like the food" OBJECTIVE: Vital Signs Period Temp Pulse Resp BP Sys/Brar Pulse Ox Last 24 Hr 97.6 F-98.0 F 69-71 15-18 89-130/44-71 100-100 Intake & Output 09/14/18 09/15/18 09/16/18 09/17/18 23:59 23:59 23:59 23:59 Intake Total 490 Balance 490 Weight 160 lb 179 lb 9.6 oz PHYSICAL EXAM GENERAL: The patient is awake, alert, and fully oriented, in no acute distress. HEAD: Normal with no signs of trauma. EYES: PERRL, extraocular movements intact, sclera anicteric, conjunctiva clear. ENT: Ears normal, nares patent, oropharynx clear without exudates, moist mucous membranes. NECK: Trachea midline, full range of motion, supple. LUNGS: Breath sounds equal, clear to auscultation bilaterally, no wheezes, no crackles, no accessory muscle use. HEART: Regular rate and rhythm, S1, S2 CHEST: left chest wall with 2 areas of 2nd degree diop with santyl dressing, no active discharge or erythema, granulation tissue present. ABDOMEN: Soft, nontender, nondistended, normoactive bowel sounds, no guarding, no rebound, EXTREMITIES: 2+ pulses, warm, well-perfused, no edema. NEUROLOGICAL: Cranial nerves II through XII grossly intact. Normal speech, gait not observed. PSYCH: Normal mood, normal affect. SKIN: Warm, dry, normal turgor, no rashes or lesions noted. LABS Laboratory Results - last 24 hr 09/16/18 09/16/18 09/16/18 13:00 13:00 15:54 WBC 8.1 RBC 3.45 L Hgb 10.6 L Hct 31.6 L MCV 91.5 MCH 30.8 MCHC 33.6 RDW 14.3 Plt Count 161 D MPV 8.4 Absolute Neuts (auto) Neutrophils % Lymphocytes % Monocytes % Eosinophils % Basophils % Nucleated RBC % PTT (Actin FS) Sodium 136 Potassium 4.5 Chloride 104 Carbon Dioxide 26 Anion Gap 7 L BUN 41 H Creatinine 1.7 H Creat Clearance w eGFR 28.70 POC Glucometer Random Glucose 329 H* Hemoglobin A1c % Serum Osmolality 315 H Calcium 8.4 L Phosphorus Magnesium Total Bilirubin 0.4 AST 30 ALT 20 Alkaline Phosphatase 65 Troponin I < 0.02 Total Protein 7.0 Albumin 3.1 L Vitamin B12 Serum Folate TSH Free T4 Urine Color Yellow Urine Appearance Clear Urine pH 5.0 Ur Specific [place] 1.021 Urine Protein Negative Urine Glucose (UA) 1+ H Urine Ketones Negative Urine Blood Negative Urine Nitrite Negative Urine Bilirubin Negative Urine Urobilinogen 0.2 Ur Leukocyte Esterase Negative U Random Total Protein Ur Random Sodium Urine Creatinine Acetone, Qual Negative L 09/16/18 09/16/18 09/16/18 15:54 16:00 16:00 WBC RBC Hgb Hct MCV MCH MCHC RDW Plt Count MPV Absolute Neuts (auto) Neutrophils % Lymphocytes % Monocytes % Eosinophils % Basophils % Nucleated RBC % PTT (Actin FS) Sodium Potassium Chloride Carbon Dioxide Anion Gap BUN Creatinine Creat Clearance w eGFR POC Glucometer Random Glucose Hemoglobin A1c % Serum Osmolality 303 Calcium Phosphorus Magnesium Total Bilirubin AST ALT Alkaline Phosphatase Troponin I Total Protein Albumin Vitamin B12 Serum Folate TSH Free T4 Urine Color Urine Appearance Urine pH Ur Specific [place] Urine Protein 16 H Urine Glucose (UA) Urine Ketones Urine Blood Urine Nitrite Urine Bilirubin Urine Urobilinogen Ur Leukocyte Esterase U Random Total Protein 15.6 H Ur Random Sodium 70 Urine Creatinine 116.0 Acetone, Qual Negative L 09/16/18 09/16/18 09/17/18 16:00 22:28 05:54 WBC RBC Hgb Hct MCV MCH MCHC RDW Plt Count MPV Absolute Neuts (auto) Neutrophils % Lymphocytes % Monocytes % Eosinophils % Basophils % Nucleated RBC % PTT (Actin FS) Sodium Potassium Chloride Carbon Dioxide Anion Gap BUN Creatinine Creat Clearance w eGFR POC Glucometer 193 103 Random Glucose Hemoglobin A1c % Serum Osmolality Calcium Phosphorus Magnesium Total Bilirubin AST ALT Alkaline Phosphatase Troponin I < 0.02 Total Protein Albumin Vitamin B12 Serum Folate TSH Free T4 Urine Color Urine Appearance Urine pH Ur Specific [place] Urine Protein Urine Glucose (UA) Urine Ketones Urine Blood Urine Nitrite Urine Bilirubin Urine Urobilinogen Ur Leukocyte Esterase U Random Total Protein Ur Random Sodium Urine Creatinine Acetone, Qual 09/17/18 09/17/18 09/17/18 06:15 06:15 06:15 WBC 6.5 RBC 3.18 L Hgb 9.6 L Hct 29.2 L MCV 91.9 MCH 30.1 MCHC 32.8 RDW 14.6 Plt Count 142 MPV 8.6 Absolute Neuts (auto) 4.2 Neutrophils % 64.2 Lymphocytes % 22.3 D Monocytes % 7.9 Eosinophils % 5.0 H Basophils % 0.6 Nucleated RBC % 0 PTT (Actin FS) 31.7 Sodium 143 Potassium 3.7 Chloride 113 H Carbon Dioxide 23 Anion Gap 7 L BUN 29 H Creatinine 1.2 Creat Clearance w eGFR 42.90 POC Glucometer Random Glucose 104 Hemoglobin A1c % Serum Osmolality Calcium 7.6 L Phosphorus 2.2 L Magnesium 2.2 Total Bilirubin 0.4 AST 24 ALT 17 Alkaline Phosphatase 55 Troponin I Total Protein 6.1 L Albumin 2.7 L Vitamin B12 793 Serum Folate 12 TSH 4.04 H Free T4 0.87 Urine Color Urine Appearance Urine pH Ur Specific [place] Urine Protein Urine Glucose (UA) Urine Ketones Urine Blood Urine Nitrite Urine Bilirubin Urine Urobilinogen Ur Leukocyte Esterase U Random Total Protein Ur Random Sodium Urine Creatinine Acetone, Qual 09/17/18 09/17/18 06:15 06:15 WBC RBC Hgb Hct MCV MCH MCHC RDW Plt Count MPV Absolute Neuts (auto) Neutrophils % Lymphocytes % Monocytes % Eosinophils % Basophils % Nucleated RBC % PTT (Actin FS) Sodium Potassium Chloride Carbon Dioxide Anion Gap BUN Creatinine Creat Clearance w eGFR POC Glucometer Random Glucose Hemoglobin A1c % 7.8 H Serum Osmolality Calcium Phosphorus Magnesium Total Bilirubin AST ALT Alkaline Phosphatase Troponin I Total Protein Albumin Vitamin B12 Cancelled Serum Folate Cancelled TSH Free T4 Urine Color Urine Appearance Urine pH Ur Specific [place] Urine Protein Urine Glucose (UA) Urine Ketones Urine Blood Urine Nitrite Urine Bilirubin Urine Urobilinogen Ur Leukocyte Esterase U Random Total Protein Ur Random Sodium Urine Creatinine Acetone, Qual CT head : CT Head without contrast Mild to moderate cerebral atrophy with chronic deep white matter projecting ischemic change There is no evidence of any intracerebral hemorrhage, mass lesion or midline shift. There is no evidence of an acute subdural hematoma. No CT evidence of acute infarct. No fractures are identified. Impression: No acute bleed or mass or fracture.No CT evidence of acute infarct. HOSPITAL COURSE: Date of Admission:09/16/18 Date of Discharge: 09/17/18 Minutes to complete discharge: 35 Discharge Summary Reason For Visit: AMINAH,A FRIB,HEADACHE Current Active Problems CAD (coronary artery disease) (Acute) Headache (Acute) Hypertension (Acute) Hospital Course: 82 yof with PMhx of CAD (non-obstructive), angina pectoris, HTN/HCVD, DM, hypercholesterolemia and degenerative vertebral disc disease, admitted to [facility] in 07/2018, with back pain, when sustained 2nd degree diop to left chest wall from EKG leads in MRI admitted with headache, weakness, AMINAH, poor oral intake and hyperglycemia. Her hypotension and AMINAH were likely from her poor oral intake, continuation of lasix, ARB/HCTZ. Her creatinine and BP normalized with IV hydration. Her lasix/ Benicar/HCTZ are being held on discharge. She was evaluated by wound care and advised ongoing care and outpatient follow up for her 2nd degree diop left chest wall. Dietary was consulted. She was noted on both plavix and eliquis on admission. Patient and daughter were counseled in detail to stop the plavix and continue eliquis and follow up with cardiology outpatient. Her headache and weakness resolved. She was evaluated by physical therapy and recommended home discharge with walker and services which have been arranged. She will be discharged in stable condition. Medication changes including holding lasix/benicar/HCTZ/plavix and need for home BP/blood glucose monitoring were discussed in detail with daughter who relayed understanding of the same. Condition: Stable - Instructions Diet, Activity, Other Instructions: You were admitted with weakness, dehydration, decreased eating and abnormal kidney function. You received intravenous hydration and your kidney numbers normalized. You walked with PT with walker. Your BP medicines other than toprol XL were held. MEDICATIONS: STOP FOLLOWING MEDICATIONS: Lasix Benicar HCT Plavix Continue other medications as before INSTRUCTIONS: You are advised to check your BP daily till next doctor visit and notify doctor if SBP (upper reading) < 100 . IF severely low or any dizziness, please call 911 or come to the ED. You advised to continue with adequate oral hydration and take food and supplements as directed as that likely contributed to your kidney injury and low BP on admission. Your lasix will be stopped on discharge. Weigh yourself daily and notify your doctor if weight gain > 3lbs in 2 days noted. Chest wall wound care instructions: Silvadene to diop, cover with 4x4 and papertape, change daily Blood test to check your thyroid (Thyroid function test) in 1 week with your doctor. Check blood sugars before meals and at bedtime and maintain a diary. Notify Dr. Pettit if < 75 or persistently > 140 or any reading >350 noted. Continue using your walker and home Physical therapy FOLLOW UP: With Dr. Sheikh in 3-5 days Blood test to check your thyroid (Thyroid function test) in 1 week with your doctor. With Dr. Hendrix in 1 week With [facility] in 1-2 weeks Wound care center as directed If you notice any dizziness, inability to eat, weakness or any new concerns, please call 911 or come to the ED> Referrals: Allen Ford MD [Staff Physician] - Luda Sheikh MD [Staff Physician] - Faye Pettit MD [Staff Physician] - Disposition: VNS/HOME HEALTH CARE - Home Medications Comprehensive Discharge Medication List: Ambulatory Orders Metoprolol Succinate [Toprol XL -] 25 mg PO DAILY 02/21/14 Apixaban [Eliquis -] 5 mg PO BID tablet 08/16/18 Collagenase Clostridium Hist. [Santyl] 1 applic TP DAILY #90 oint...g. 09/07/18 Acetaminophen 650 mg PO Q6H PRN 09/16/18 Albuterol 2.5/Ipratropium 0.5 [Duoneb -] 1 amp NEB TID PRN 09/16/18 Insulin (Novolog) [Novolog -] 8 units SQ ACBK 09/16/18 Insulin Aspart [Novolog] 6 unit SQ ACDIN 09/16/18 Insulin Aspart [Novolog] 8 unit SQ AC 09/16/18 Insulin Glargine,Hum.rec.anlog [Toujeo Solostar] 14 unit SQ HS 09/16/18 Melatonin 3 mg PO HS PRN 09/16/18 Repaglinide 1 mg PO TID 09/16/18 Rosuvastatin Calcium [Crestor] 10 mg PO DAILY 09/16/18 Silver Sulfadiazine 1% Top Cr [Silvadene -] 1 applic TP DAILY #1 jar 09/17/18 This patient is new to me today: No Emergency Visit: Yes ED Registration Date: 09/16/18 Care time: The patient presented to the Emergency Department on the above date and was hospitalized for further evaluation of their emergent condition. Critical Care patient: No - Discharge Referral Referred to [facility] No
[2018-09-17] MEDS: COLLAGENASE CLOSTRIDIUM HIST. 30 GRAMS TUBE TP SCH ×2 (11:34→16:07)
[2018-09-17 12:41] VITALS: BMI 31.6
[2018-09-17 15:05] VITALS: BP 113/62; PULSE 74; TEMP 98.2
[2018-09-17] MEDS ORDERED: ROSUVASTATIN CA 10 MG TABLET (FP) PO SCH (22:00)
== END 2018-09-17 17:03 | disposition home health service (06) ==
LOC: JER 12:13 → JERBED 14:21 → J5S 20:19
PROVIDERS: ADMIT Hospitalist; ATTEND Hospitalist
PROC: 2W24X4Z Dressing of Chest Wall using Bandage (ICD-10-PCS; principal; 2018-09-16)
PROC: 3E0337Z Introduction of Electrolytic and Water Balance Substance into Peripheral Vein, Percutaneous Approach (ICD-10-PCS; 2018-09-16)
PROC: 3E013VG Introduction of Insulin into Subcutaneous Tissue, Percutaneous Approach (ICD-10-PCS; 2018-09-16)
DX: R51 Headache (principal); I11.0 Hypertensive heart disease with heart failure; I25.119 Atherosclerotic heart disease of native coronary artery with unspecified angina pectoris; E78.5 Hyperlipidemia, unspecified; I48.91 Unspecified atrial fibrillation; J45.909 Unspecified asthma, uncomplicated; I50.9 Heart failure, unspecified; E11.65 Type 2 diabetes mellitus with hyperglycemia; N17.9 Acute kidney failure, unspecified; T21.21XD Burn of second degree of chest wall, subsequent encounter; T31.0 Burns involving less than 10% of body surface; X08.8XXD Exposure to other specified smoke, fire and flames, subsequent encounter; Z86.73 Personal history of transient ischemic attack (TIA), and cerebral infarction without residual deficits; Z79.01 Long term (current) use of anticoagulants; Z79.4 Long term (current) use of insulin
CPT/HCPCS: 16020; 36415; 70450-TC; 71045-TC-FY; 80053; 81003; 82009; 82436; 82570; 82607; 82746; 82962; 83036; 83735; 83930; 84100; 84156; 84300; 84439; 84443; 84484; 85025; 85027; 85730; 87086; 87186; 93005; 93010; 96360; 96372; 97116-GP; 97161-GP; 99285-25; G0378; J7030

== ENCOUNTER 2018-10-25 11:18 | Emergency (ER) | payer OTHER ==
[2018-10-25 11:27] VITALS: BMI 34.5
[2018-10-25 12:48] LABS: BASO % 0.6 % (0-2.0); HEMATOCRIT 32.9 % (32.4-45.2); HEMOGLOBIN 10.8 GM/dL (10.7-15.3); LYMPH % 15.2 % (8-40); MCH 29.8 pg (25.7-33.7); MCHC 32.8 g/dl (32.0-36.0); MEAN CELL VOLUME 90.6 fl (80-96); MEAN PLT VOLUME 8.8 fl (7.5-11.1); MONO % 5.9 % (3.8-10.2); NEUT % 74.3 % (42.8-82.8); PLATELET COUNT 212 K/MM3 (134-434); RBC 3.63 M/mm3 (3.60-5.2); RDW 14.4 % (11.6-15.6); WHITE BLOOD COUNT 9.4 K/mm3 (4.0-10.0)
[2018-10-25 12:59] LABS: INR 1.74 (0.83-1.09); PROTHROMBIN TIME (PATIENT) 20.6 SEC (9.7-13.0)
--- NOTE | 2018-10-25 13:00 | PDOC ---
History of Present Illness - General Chief Complaint: Pain, Acute Stated Complaint: ABD PAIN Time Seen by Provider: 10/25/18 12:01 - History of Present Illness Initial Comments: 10/25/18 12:32 Anjelica Sierra is an 82yo woman with a PMH of CAD, HTN, HLD, a-fib on Eliquis, prior CVA, CHF, asthma, recent admission last month w/ AMINAH (taken off diuretics ) and partial thickness diop to her anterior chest wall (EKG leads worn in MRI) , dx with ecoli UTI 2 weeks ago and unable to complete her antibiotics who presents with multiple episodes of dark/black stool since Monday and swelling of her legs for 2 days. Her daughter is at bedside to provide additional history. Ms Sierra states that the stool has sometimes been formed, sometimes watery, but it has been black in color all week. When she has a bowel movement, she has 8/10 lower abdominal pain that she is unable to qualify. The pain is short-lived and resolves after the BM. She has not noticed any continued urinary symptoms though her daughter notes that the original antibiotic prescribed gave her diarrhea, as did a replacement, and she finished neither course. In addition to the episodes of diarrhea, Ms Sierra has noticed swelling to both legs over the past 2 days. She denies any associated PARRA, orthopnea, change in meds (diuretics stopped approx 6 weeks ago). Her daughter reports that they go for frequent walks, and these have been unchanged over the past few days. She additionally denies any cough, wheezing, fevers/chills, nausea/vomiting, or other symptoms. Past History - Past Medical History Allergies/Adverse Reactions: Allergies Allergy/AdvReac Type Severity Reaction Status Date / Time No Known Allergies Allergy Verified 10/25/18 11:27 Home Medications: Ambulatory Orders Metoprolol Succinate [Toprol XL -] 25 mg PO DAILY 02/21/14 Apixaban [Eliquis -] 5 mg PO BID tablet 08/16/18 Collagenase Clostridium Hist. [Santyl] 1 applic TP DAILY #90 oint...g. 09/07/18 Acetaminophen 650 mg PO Q6H PRN 09/16/18 Albuterol 2.5/Ipratropium 0.5 [Duoneb -] 1 amp NEB TID PRN 09/16/18 Insulin (Novolog) [Novolog -] 8 units SQ ACBK 09/16/18 Insulin Aspart [Novolog] 6 unit SQ ACDIN 09/16/18 Insulin Aspart [Novolog] 8 unit SQ AC 09/16/18 Insulin Glargine,Hum.rec.anlog [Toujeo Solostar] 14 unit SQ HS 09/16/18 Melatonin 3 mg PO HS PRN 09/16/18 Repaglinide 1 mg PO TID 09/16/18 Rosuvastatin Calcium [Crestor] 10 mg PO DAILY 09/16/18 Amino AC/Protein Hydr/Whey Pro [Prosource Plus Liquid Packet] 30 ml PO BID #60 liquid.pkt 09/17/18 Nut.tx.gluc.intoler,Lac-Fr,Soy [Glucerna] 237 ml PO BID #60 liquid 09/17/18 Ciprofloxacin [Cipro -] 500 mg PO Q12H #14 tablet 10/25/18 metroNIDAZOLE [Metronidazole] 500 mg PO Q8H #21 tablet 10/25/18 Anemia: No Asthma: Yes Cancer: No Cardiac Disorders: Yes (a fib-on eliquis) CVA: No COPD: No CHF: Yes Dementia: No Diabetes: Yes GI Disorders: No Disorders: No HTN: Yes Hypercholesterolemia: Yes Liver Disease: No Seizures: No Thyroid Disease: No Other medical history: wounds to the chest - Surgical History Abdominal Surgery: No Cardiac Surgery: No Cholecystectomy: Yes Lung Surgery: No Neurologic Surgery: No - Immunization History Immunization Up to Date: (Unknown) - Suicide/Smoking/Psychosocial Hx Smoking Status: No Smoking History: Never smoked Have you smoked in the past 12 months: No Number of Cigarettes Smoked Daily: 0 Hx Alcohol Use: Yes Drug/Substance Use Hx: No Substance Use Type: None Hx Substance Use Treatment: No Review of Systems - Review of Systems Comments:: General: No fevers, no chills, no weight or appetite change, no malaise HEENT: No changes in vision, no changes in hearing, no congestion, no sore throat CV: No chest pain, no palpitations, +BLE edema Pulm: No SOB, no cough, no wheezing GI: No nausea or vomiting, See HPI : No frequency, no urgency, no dysuria Musc: No back pain, no joint swelling, no recent injury Skin: No rash, no lesions, no erythema Endo: No excessive thirst, no heat/cold intolerance Heme: No unusual bruising or bleeding, no swollen glands Neuro: No syncope, no numbness/tingling, no focal weakness Vasc: No claudication Psych: No recent change in mood, no SI or HI *Physical Exam - Vital Signs Last Vital Signs Temp Pulse Resp BP Pulse Ox 73 18 147/46 L 95 10/25/18 11:24 10/25/18 11:24 10/25/18 11:24 10/25/18 11:24 - Physical Exam Comments: General: Comfortable, no acute distress HEENT: PERRL, EOMI, MMM, voice normal, normal neck ROM, hard of hearing Cards: Difficult to auscultate 2/2 habitus, loud upper resp sounds Pulm: Comfortable on room air, clear to auscultation bilaterally Abd: Soft, non-distended. Mildly TTP in b/l and midline low abd v suprapubic area : No CVA tenderness Rectal: Normal tone, no blood noted, no perianal lesions, brown stool Ext: Atraumatic. 2+ BLE nonpitting edema. Vasc: Extremities WWP. Skin: Normal color, no rashes or lesions Neuro: A&Ox3, CN grossly intact, normal speech, motor/sensory grossly intact and symmetric Psych: Mood appropriate to situation ED Treatment Course - LABORATORY CBC & Chemistry Diagram: 10/25/18 12:40 10/25/18 12:40 Medical Decision Making - Medical Decision Making 10/25/18 12:32 Anjelica Sierra is an 82yo woman with a PMH of CAD, HTN, HLD, a-fib on Eliquis, prior CVA, CHF, asthma, recent undertreated UTI, recently taken off diuretics who presents with 4 days of dark/black stools and 2 days of increased BLE edema. - Possible melena w/ report of dark stool, pt on Eliquis. FOBT sent - Abd pain could be secondary to diarrhea, UTI especially given recent ecoli UTI apparently untreated, diverticulitis less likely. No focal TTP suggesting surgical disease such as appendicitis, no upper abdominal pain suggesting cholecystitis, pancreatitis. - BLE edema possibly due to fluid overload as she is off diuretics, may be due to anemia 13:45 - CBC completed, no concerning abnormalities, no significant anemia. No electrolyte abnormalities or indication of dehydration - FOBT negative - Will send for CT abd/pelvis for evaluation of possible colitis as a cause of diarrhea 10/25/18 16:07 - CT completed. Indicates mild diverticulitis. - DIscussed with Ms Sierra and her daughter. Would prefer to try outpatient treatment with abx at home. Will make an appointment for follow up with her PMD on Monday. - Plan to d/c home Discussed with Dr Kim. Aleida Chappell PGY1 *DC/Admit/Observation/Transfer Diagnosis at time of Disposition: Diverticulitis - Discharge Dispostion Disposition: HOME Condition at time of disposition: Stable Decision to Admit order: No - Referrals Referrals: Luda Sheikh MD [Primary Care Provider] - - Patient Instructions Printed Discharge Instructions: DI for Diverticulitis Additional Instructions: Discharge Instructions: - You were seen in the ER for diarrhea and abdominal pain. You were found to have diverticulitis, which is a colon infection. - You have been prescribed antibiotics to take at home for one week. One is called Flagyl (metronidazole); this is taken every 8 hours. The other is ciprofloxacin, which is taken every 12 hours. - It is very important that you complete the entire course of antibiotics. - Make sure you are staying well hydrated at home. - Make an appointment to follow up with your primary doctor on Monday. - Seek immediate care if you have worsening of your symptoms, severe abdominal pain, bloody stool, develop fevers to 101F or higher, become dehydrated, or you have any other medical emergency. - Post Discharge Activity
[2018-10-25 13:02] LABS: ACTIVATED PTT 36.3 SECONDS (25.2-36.5)
[2018-10-25 13:13] VITALS: TEMP 98.4
[2018-10-25 13:14] LABS: BILIRUBIN,TOTAL 0.3 mg/dL (0.2-1); CALCIUM 8.4 mg/dL (8.5-10.1); TOT PROT 6.7 g/dl (6.4-8.2)
[2018-10-25 13:32] LABS: URINE APPEARANCE CLEAR; URINE BILIRUBIN NEGATIVE (NEGATIVE); URINE COLOR YELLOW; URINE GLUCOSE (UA) 3+ (NEGATIVE); URINE KETONE NEGATIVE (NEGATIVE); URINE LEUK ESTERASE NEGATIVE (NEGATIVE); URINE NITRITE NEGATIVE (NEGATIVE); URINE PROTEIN NEGATIVE (NEGATIVE); URINE UROBILINOGEN 0.2 mg/dL (0.2-1.0)
--- NOTE | 2018-10-25 16:08 | PDOC ---
Documentation entered by Lizbeth Rankin SCRIBE, acting as scribe for Kalee Kim MD. Kalee Kim MD: This documentation has been prepared by the [employer] Adrianna, SCRIBE, under my direction and personally reviewed by me in its entirety. I confirm that the documentation accurately reflects all work, treatment, procedures, and medical decision making performed by me. Attending Attestation - Resident Resident Name: Aleida Chappell - [facility] HPI: The patient is an 82 year old female, with a significant PMH of coronary artery disease, hypertension, hyperlipidemia, Atrial fibrillation (on Eliquis/Plavix), CVA, chronic back pain, arthritis, insulin-dependent diabetes, heart failure ( SVT), asthma, recent admission last month for AMINAH (no longer on diuretics), and partial thickness diop to her anterior chest wall from EKG leads worn in MRI, who presents to the emergency department today complaining of irregular stools for 2 days. Patient notes she has been passing multiple dark black stools (more than 10 a day), changing between soft or watery. She endorses left lower quadrant abdominal cramping, which is exacerbated when trying to pass stool. Patient notes being diagnosed with E.coli UTI 2 weeks ago, but she did not finish her course of antibiotics secondary to it causing diarrhea. She endorses bilateral LE edema. The patient denies chest pain, shortness of breath, headache and dizziness. Denies fever, chills, nausea, vomit, and constipation. Denies dysuria, frequency, urgency and hematuria. Allergies: NKA Past surgical history: Cholecystectomy Social history: No reported PCP: Dr. Luda Sheikh 10/25/18 13:22 - Physicial Exam PE: GENERAL: Awake, alert, and fully oriented, in no acute distress HEAD: No signs of trauma EYES: PERRLA, EOMI, sclera anicteric, conjunctiva clear ENT: Auricles normal inspection, hearing grossly normal, nares patent, oropharynx clear without exudates. Moist mucosa NECK: Normal ROM, supple, no lymphadenopathy, JVD, or masses LUNGS: Breath sounds equal, clear to auscultation bilaterally. No wheezes, and no crackles HEART: Regular rate and rhythm, normal S1 and S2, no murmurs, rubs or gallops ABDOMEN: Soft, nontender, normoactive bowel sounds. No guarding, no rebound. No masses EXTREMITIES: Normal range of motion, no edema. No clubbing or cyanosis. No cords, erythema, or tenderness NEUROLOGICAL: Cranial nerves II through XII grossly intact. SKIN: Warm, Dry, normal turgor, no rashes or lesions noted. 10/25/18 14:57 - Medical Decision Making EXAM#: TYPE/EXAM: RESULT: [id number] CT/ABDOMEN PELVIS CT WITH CONTR HISTORY PROVIDED: Diarrhea, rule out colitis. IMPRESSION: 1. S/P cholecystectomy with prominent biliary tree. No obvious obstruction. 2. Possible mild sigmoid diverticulitis/colitis. Clinical correlation and follow -up recommended. Please see above discussion. Reported By: Celso Person MD 10/25/18 15:39 10/25/18 15:46 10/25/18 16:06 Pt presents to the ED complaining of diarrhea and diffuse abdominal pain. CT shows diverticulitis. Patient is well appearing, tolerating PO and is asking to go home. Will discharge home with rx for cipro flagyl and urgent follow up with PMD.
[2018-10-25 16:47] VITALS: BP 134/76; PULSE 76
--- NOTE | 2018-10-29 10:00 | EKG ---
Test Reason : Blood Pressure : / mmHG Vent. Rate : 070 BPM Atrial Rate : 070 BPM P-R Int : 160 ms QRS Dur : 078 ms QT Int : 406 ms P-R-T Axes : 050 -09 000 degrees QTc Int : 438 ms NORMAL SINUS RHYTHM ANTERIOR INFARCT (CITED ON OR BEFORE 16-SEP-2018) ABNORMAL ECG WHEN COMPARED WITH ECG OF 16-SEP-2018 15:33, NO SIGNIFICANT CHANGE WAS FOUND Confirmed by NOHEMY DE LA O, KALEB ([id number]) on 10/29/2018 9:59:47 AM Referred By: Confirmed By:KALEB SLATER MD
== END 2018-10-25 17:05 | disposition home or self-care (01) ==
LOC: JER 11:18
DX: K57.32 Diverticulitis of large intestine without perforation or abscess without bleeding (principal); I25.10 Atherosclerotic heart disease of native coronary artery without angina pectoris; I13.0 Hypertensive heart and chronic kidney disease with heart failure and stage 1 through stage 4 chronic kidney disease, or unspecified chronic kidney disease; N18.9 Chronic kidney disease, unspecified; I50.9 Heart failure, unspecified; I48.91 Unspecified atrial fibrillation; Z79.01 Long term (current) use of anticoagulants; E11.9 Type 2 diabetes mellitus without complications; Z79.4 Long term (current) use of insulin; E78.00 Pure hypercholesterolemia, unspecified; J45.909 Unspecified asthma, uncomplicated; Z86.73 Personal history of transient ischemic attack (TIA), and cerebral infarction without residual deficits; Z87.440 Personal history of urinary (tract) infections
CPT/HCPCS: 36415; 74177-TC; 80053; 81003; 82272; 85025; 85610; 85730; 87086; 93005; 93010; 99285-25